=== PATIENT | male | born 1955 | race Caucasian/White ===

== ENCOUNTER 2017-12-08 07:44 | Outpatient (CLI) | payer OTHER ==
--- NOTE | 2017-12-08 13:35 | PET ---
PET CT: HISTORY: A 61-year-old male with squamous cell carcinoma of the left neck, of unknown primary. Exam requested for initial staging. COMPARISON/CORRELATION: There are no previous exams for comparison or correlation. TECHNIQUE: PET scan with CT attenuation correction was performed from the vertex through the proximal thighs, fo llowing the intravenous administration of 11 millicuries of F18 fluorodeoxyglucose in the right hand. Imaging was performed after an uptake interval of 62 minutes. FINDINGS: There is a hypermetabolic mass in the region of the left submandibular gland, with an SUV of 21. No other foci of abnormal FDG localization are seen in the neck. There is a hypermetabolic nodule in the right breast (medial aspect of the right retroareolar breast) with an SUV of 5.3. No hilario hypermetabolism is seen in the mediastinum, hilar regions, axillae, abdomen, pelvis, or ingu inal regions. No hypermetabolic pulmonary nodules or liver, adrenal, or skeletal lesions are seen. There is physiologic activity in the GI and tracts and in the brain. CT scan used for attenuation correction demonstrates no evidence of pleural effusion or ascites. The re are changes of cholecystectomy, fatty liver, nonobstructing left renal calculus, and prostatic enl argement. IMPRESSION: 1. Malignancy/metastatic disease in the region of the left submandibular gland. 2. Findings suspicious for right breast cancer. Further evaluation with bilateral mammograms and right breast ultrasound (including biopsy) is recomm ended. Discussed over the telephone with Dr. Laz Loo at 1:13 p.m. CODE CR POS: [facility]
== END 2017-12-08 07:45 | disposition home or self-care (01) ==
LOC: PET 07:44
PROVIDERS: ATTEND Radiology Radiation Oncology
DX: C80.1 Malignant (primary) neoplasm, unspecified (principal); C77.0 Secondary and unspecified malignant neoplasm of lymph nodes of head, face and neck
CPT/HCPCS: 78815; A9552

== ENCOUNTER 2017-12-22 08:14 | Day surgery (SDC) | payer SELFPAY ==
[2017-12-22] MEDS ORDERED: Dexamethasone 10 MG in Sodium Chloride 0.9% 50 ML IVPB SCH (09:15)
[2017-12-22] MEDS ORDERED: Sodium Chloride 0.9% 500 ML IVPB SCH (09:15)
[2017-12-22] MEDS ORDERED: SODIUM CHLORIDE 0.9% IV SCH (09:15)
[2017-12-22] MEDS ORDERED: CISPLATIN IV SCH (09:15)
[2017-12-22] MEDS ORDERED: Palonosetron HCl 0.25 MG in Sodium Chloride 0.9% 50 ML IVPB SCH (09:15)
[2017-12-22] MEDS ORDERED: MANNITOL IV SCH (09:15)
[2017-12-22 09:35] VITALS: BP 121/77; TEMP 98
[2017-12-22] MEDS ORDERED: Sodium Chloride 0.9% 20 ML ONE (12:49)
== END 2017-12-22 19:25 | disposition home or self-care (01) ==
LOC: ONC/OP 08:14
PROVIDERS: ATTEND Internal Medicine Hematology & Oncology
DX: Z51.11 Encounter for antineoplastic chemotherapy (principal); C14.8 Malignant neoplasm of overlapping sites of lip, oral cavity and pharynx; E11.9 Type 2 diabetes mellitus without complications; Z87.891 Personal history of nicotine dependence; Z79.84 Long term (current) use of oral hypoglycemic drugs
CPT/HCPCS: 96361; 96366; 96375; 96413; J1100; J2150; J2469; J3480; J7050; J9060

== ENCOUNTER 2017-12-30 08:32 | Day surgery (SDC) | payer OTHER, SELFPAY ==
[2017-12-30] MEDS ORDERED: Potassium Chloride 10 MEQ, Admixture Fee 1 EACH in Sodium Chloride 0.9% 500 ML IV SCH (08:45)
[2017-12-30] MEDS ORDERED: PALONOSETRON HCL 0.05 MG/ML 5 ML VIAL IVP SCH (08:45)
[2017-12-30] MEDS ORDERED: Sodium Chloride 0.9% 20 ML ONE (08:45)
[2017-12-30] MEDS ORDERED: Dexamethasone 10 MG/ML VIAL SLOW IVP SCH (08:45)
[2017-12-30 08:51] VITALS: BP 126/73; TEMP 97.8
[2017-12-30] MEDS ORDERED: CISPLATIN IV SCH (09:00)
[2017-12-30] MEDS ORDERED: MANNITOL IV SCH (09:00)
[2017-12-30] MEDS ORDERED: SODIUM CHLORIDE 0.9% IV SCH (09:00)
== END 2017-12-30 16:41 | disposition home or self-care (01) ==
LOC: ONC/OP 08:32
PROVIDERS: ATTEND Internal Medicine Hematology & Oncology
DX: Z51.11 Encounter for antineoplastic chemotherapy (principal); C14.8 Malignant neoplasm of overlapping sites of lip, oral cavity and pharynx
CPT/HCPCS: 96361; 96366; 96375; 96413; J1100; J2150; J2469; J3480; J7050; J9060

== ENCOUNTER 2018-01-06 08:28 | Day surgery (SDC) | payer OTHER ==
[2018-01-06] MEDS ORDERED: Palonosetron HCl 0.25 MG, Admixture Fee 1 EACH in Sodium Chloride 0.9% 50 ML IVPB SCH (08:45)
[2018-01-06] MEDS ORDERED: Potassium Chloride 10 MEQ, Admixture Fee 1 EACH in Sodium Chloride 0.9% 500 ML IV SCH (08:45)
[2018-01-06] MEDS ORDERED: Dexamethasone 10 MG in Sodium Chloride 0.9% 50 ML IVPB SCH (08:45)
[2018-01-06] MEDS ORDERED: SODIUM CHLORIDE 0.9% IV SCH (09:00)
[2018-01-06] MEDS ORDERED: CISPLATIN IV SCH (09:00)
[2018-01-06] MEDS ORDERED: MANNITOL IV SCH (09:00)
[2018-01-06] MEDS ORDERED: Sodium Chloride 0.9% 20 ML ONE (09:08)
[2018-01-06 09:59] VITALS: BP 120/57; TEMP 98.5
== END 2018-01-06 14:50 | disposition home or self-care (01) ==
LOC: ONC/OP 08:28
PROVIDERS: ATTEND Internal Medicine Hematology & Oncology
DX: Z51.11 Encounter for antineoplastic chemotherapy (principal); C14.8 Malignant neoplasm of overlapping sites of lip, oral cavity and pharynx
CPT/HCPCS: 96361; 96366; 96376; 96413; J1100; J2150; J2469; J3480; J7050; J9060

== ENCOUNTER 2018-01-13 08:31 | Day surgery (SDC) | payer OTHER ==
[2018-01-13] MEDS ORDERED: Sodium Chloride 0.9% 20 ML ONE (08:42)
[2018-01-13] MEDS ORDERED: CISPLATIN IV SCH (08:45)
[2018-01-13] MEDS ORDERED: SODIUM CHLORIDE 0.9% IV SCH (08:45)
[2018-01-13] MEDS ORDERED: MANNITOL IV SCH (08:45)
[2018-01-13] MEDS ORDERED: Sodium Chloride 0.9% 500 ML IVPB SCH (09:00)
[2018-01-13] MEDS ORDERED: Dexamethasone 10 MG in Sodium Chloride 0.9% 50 ML IVPB SCH (09:00)
[2018-01-13] MEDS ORDERED: Palonosetron HCl 0.25 MG in Sodium Chloride 0.9% 50 ML IVPB SCH (09:00)
[2018-01-13 11:48] VITALS: BP 112/69; TEMP 98.5
== END 2018-01-13 13:04 | disposition home or self-care (01) ==
LOC: ONC/OP 08:31
PROVIDERS: ATTEND Internal Medicine Hematology & Oncology
DX: Z51.11 Encounter for antineoplastic chemotherapy (principal); C14.8 Malignant neoplasm of overlapping sites of lip, oral cavity and pharynx
CPT/HCPCS: 96361; 96366; 96375; 96413; J1100; J2150; J2469; J3480; J7050; J9060

== ENCOUNTER 2018-01-20 08:23 | Day surgery (SDC) | payer OTHER ==
[2018-01-20] MEDS ORDERED: Sodium Chloride 0.9% 20 ML ONE (08:36)
[2018-01-20 09:13] VITALS: BP 129/69; TEMP 98.3
[2018-01-20] MEDS ORDERED: Sodium Chloride 0.9% 500 ML IVPB SCH (09:15)
[2018-01-20] MEDS ORDERED: Palonosetron HCl 0.25 MG in Sodium Chloride 0.9% 50 ML IVPB SCH (09:15)
[2018-01-20] MEDS ORDERED: Dexamethasone 10 MG in Sodium Chloride 0.9% 50 ML IVPB SCH (09:15)
[2018-01-20] MEDS ORDERED: SODIUM CHLORIDE 0.9% IV SCH (09:45)
[2018-01-20] MEDS ORDERED: MANNITOL IV SCH (09:45)
[2018-01-20] MEDS ORDERED: CISPLATIN IV SCH (09:45)
== END 2018-01-20 16:50 | disposition home or self-care (01) ==
LOC: ONC/OP 08:23
PROVIDERS: ATTEND Internal Medicine Hematology & Oncology
DX: Z51.11 Encounter for antineoplastic chemotherapy (principal); C14.8 Malignant neoplasm of overlapping sites of lip, oral cavity and pharynx
CPT/HCPCS: 96361; 96366; 96375; 96413; J1100; J2150; J2469; J3480; J7050; J9060

== ENCOUNTER 2018-01-30 11:22 | Observation (INO) | payer OTHER ==
[2018-01-27 12:30] VITALS: BMI 25.2
[2018-01-30] MEDS ORDERED: CEFAZOLIN 2 GM/50 ML BAG ONE (11:55)
--- NOTE | 2018-01-30 13:44 | OP ---
DATE OF SERVICE: 01/30/2018 SURGEON: Issac Guevara M.D. PROCEDURE: EGD with PEG tube placement. PREPROCEDURE DIAGNOSES: Previous diagnosis of throat cancer and radiation therapy, unable to talk or swallow for 5 days. POSTOPERATIVE DIAGNOSES: 1. Edema in the pharynx. 2. Normal esophagogastroduodenoscopy otherwise. 3. PEG tube placed by Ponsky pull technique. Second look confirmed good placement. ANESTHESIA: TIVA. Ancef 2 grams IV given prophylactically. PROCEDURE IN DETAIL: After the patient was informed of the risks and benefits and possible complicat ions of endoscopy including perforation, aspiration, informed consent was obtained. The patient was brought to the endoscopy suite where he was sedated in gradual fashion. Once he was comfortable, a b ite block was placed in the incisural orifice, the endoscope was advanced through the esophagus, stom ach, second and third portion of duodenum and slowly. The oropharynx was notable for a little bit of edema in the arytenoid area. No masses were seen. No overt strictures were seen. The esophagus, s tomach, and duodenum were found to be normal. An adequate place for PEG tube was identified by trans illumination and finger indentation and after that it was prepped and draped in sterile fashion. A P EG tube was placed by Ponsky pull technique. Second look confirmed good placement. The scope was re moved. The patient tolerated the procedure well with no complications.
[2018-01-30] MEDS ORDERED: Lidocaine 1% PF 5 ML VIAL ONE (14:54)
[2018-01-30] MEDS ORDERED: PROPOFOL 200 MG/20 ML VIAL ONE (14:54)
[2018-01-30] MEDS ORDERED: Acetaminophen 650 MG/20.3 ML UDCUP PER TUBE PRN (16:53)
[2018-01-30] MEDS: metFORMIN 500 MG TAB PO SCH (17:04)
[2018-01-30] MEDS: Alogliptin 6.25 MG TAB PO SCH (17:04)
[2018-01-30] MEDS: Dextrose 5 % And 0.9 % NaCl 1,000 ML IV SCH (17:12)
[2018-01-30] MEDS: Morphine 2 MG/ML SYRINGE SLOW IVP PRN ×2 (17:14→20:23)
[2018-01-30] MEDS ORDERED: Latanoprost 0.005% Ophth Soln 2.5 ml Bottle EA EYE SCH (21:00)
[2018-01-30] MEDS: Timolol 0.5% Ophth Soln 5 ml Bottle EA EYE SCH (21:17)
[2018-01-30] MEDS: glyBURIDE 5 MG TAB PO SCH (21:18)
[2018-01-31] MEDS: Dextrose 5 % And 0.9 % NaCl 1,000 ML IV SCH (03:33)
[2018-01-31] MEDS ORDERED: Gemfibrozil 600 MG TAB PO SCH (07:30)
[2018-01-31 08:34] VITALS: BP 127/81; TEMP 98.4
[2018-01-31] MEDS: Timolol 0.5% Ophth Soln 5 ml Bottle EA EYE SCH (09:19)
[2018-01-31] MEDS: glyBURIDE 5 MG TAB PO SCH (11:13)
[2018-01-31] MEDS: Alogliptin 6.25 MG TAB PO SCH (11:13)
[2018-01-31] MEDS: metFORMIN 500 MG TAB PO SCH (11:13)
--- NOTE | 2018-02-01 08:40 | DIS ---
ADMITTING DIAGNOSES: 1. A 23-hour observation after PEG tube placement. 2. Oropharyngeal cancer. 3. Odynophagia, dysphagia and aphagia secondary to malignancy. DISCHARGE DIAGNOSIS: Status post percutaneous endoscopic gastrostomy tube placement with no complica tions. PROCEDURE PERFORMED: PEG tube placement. DISCHARGE INSTRUCTIONS: 1. Disposition: The patient will go home and is going to follow up with oncology dietitian for tube feeding instructions. He has been instructed on how to use the feeding tube here as his and ho w to clean it by the nursing staff. 2. Resume home medications. 3. Follow up in my office as needed. Otherwise, when his oncologist and radiation therapist indicat e that he is ready to have his PEG tube removed, we can do that in the office. HOSPITAL COURSE: The patient was admitted for 23-hour day stay after PEG tube placement yesterday. He has done well with no fever, chills, or pain. The PEG tube site looks clean and dry, bumper was l oosened. He has been given education materials and educated him and his on how to use the PEG. He is going to go home today and go by Oncology to have his radiation therapy and visit with a dieti roly there before going home.
== END 2018-01-31 11:16 | disposition home or self-care (01) ==
LOC: SDC 11:22 → SURG A 13:25
PROVIDERS: ADMIT Internal Medicine Gastroenterology; ATTEND Internal Medicine Gastroenterology
PROC: 0DH63UZ Insertion of Feeding Device into Stomach, Percutaneous Approach (ICD-10-PCS; principal; 2018-01-31)
DX: C10.9 Malignant neoplasm of oropharynx, unspecified (principal); R13.10 Dysphagia, unspecified; Z79.84 Long term (current) use of oral hypoglycemic drugs; Z79.899 Other long term (current) drug therapy
CPT/HCPCS: 36416; 96361; 96374; 96376; G0378; J2001; J2270; J2704

== ENCOUNTER 2018-02-24 10:20 | Outpatient (CLI) | payer BC, OTHER | END 2018-02-24 10:21 | disposition home or self-care (01) | LOC: BICMAMMO 10:20 | PROVIDERS: ATTEND Specialist | DX: N63.10 Unspecified lump in the right breast, unspecified quadrant (principal) | CPT/HCPCS: G0279 ==

== ENCOUNTER 2018-03-24 09:43 | Outpatient (CLI) | payer BC ==
--- NOTE | 2018-03-27 13:42 | PET ---
PET WITH CT SKULL TO MID THIGH: CLINICAL HISTORY: Malignant neoplasm upper outer quadrant, male breast. History of squamous cell carcinoma of left nec k. COMPARISON: Reference is made to 12/08/[address] RADIOPHARMACEUTICAL: 10.9 mCi fluorine 18 FDG IV, intermixed with 10 cc 0.9% sodium chloride. There is appropriate biodistribution of radiotracer activity. FINDINGS: There has been interval improvement of hypermetabolic activity at the left neck. There is persistent mass-like soft tissue density of the left oropharynx/submandibular region, with surrounding fat stra nding, some of which may be post treatment in etiology. Residual hypermetabolic activity, although l ess from prior exam, does remain, with SUV measuring up to 2.7. Prior hypermetabolic activity with regard to a right breast mass has resolved, without evidence of hy permetabolic activity remaining within the right breast soft tissue density which remains. Punctate radiopaque density is present within the retroareolar density. There is prominent activity throughout the course of the colon which may be physiologic. No scintigraphic evidence of interval metastatic disease is identified. IMPRESSION: 1. Interval improvement with regard to hypermetabolic activity of left submandibular region mass. T here is CT evidence to indicate interval treatment, with residual hypermetabolic activity remaining. This could relate to post treatment activity and/or a component of underlying residual/recurrent dis ease. 2. Interval resolution of hypermetabolic activity with regard to patient's previously diagnosed righ t breast hypermetabolic mass. Currently, no hypermetabolic activity of the postoperative right breas t tissue is present. 3. No interval development of metastatic disease is demonstrated. POS: [facility]
== END 2018-03-24 09:44 | disposition home or self-care (01) ==
LOC: PET 09:43
PROVIDERS: ATTEND Internal Medicine Hematology & Oncology
DX: C50 Malignant neoplasm of breast (principal); C76.0 Malignant neoplasm of head, face and neck
CPT/HCPCS: 78815; A9552

== ENCOUNTER 2018-03-31 06:13 | Outpatient (CLI) | payer BC, OTHER ==
[2018-03-31 14:47] LABS: Anion Gap 16 mmol/L (10-20); BUN (Urea Nitrogen) 13 mg/dL (8.4-25.7); Calc. Creatinine Clearance 0 mL/min (70-130); Calcium 9.5 mg/dL (7.8-10.44); Carbon Dioxide 25 mmol/L (23-31); Chloride 107 mmol/L (98-107); Estimated GFR-MDRD 77; Glucose 82 mg/dL (80-115); Potassium 4.5 mmol/L (3.5-5.1); Sodium 143 mmol/L (136-145)
[2018-03-31 14:58] LABS: Band 4 % (5-11); Hemoglobin 11.5 g/dL (14.0-18.0); Lymphocytes 12 % (21-51); MDiff Complete? YES; Mean Corpuscular HGB CONC 32.7 g/dL (32.0-36.0); Mean Corpuscular Hemoglobin 31.7 pg (27.0-31.0); Mean Platelet Volume 7.3 fL (7.4-10.4); Monocytes 7 % (0-10); Neutrophil 77 % (42-75); Platelet Count 211 thou/uL (130-400); Platelet Morphology Comment Appears Adequate; RBC Distribution Width 13.1 % (11.5-14.5); Red Blood Cell (RBC) Count 3.63 mill/uL (4.70-6.10); White Blood Cell (WBC) Count 5.1 thou/uL (4.8-10.8)
== END 2018-03-31 06:14 | disposition home or self-care (01) ==
LOC: LABBT 06:13
PROVIDERS: ATTEND Specialist
DX: Z01.818 Encounter for other preprocedural examination (principal); C50.121 Malignant neoplasm of central portion of right male breast; Z17.0 Estrogen receptor positive status [ER+]
CPT/HCPCS: 80048; 85025; 93005; 93010

== ENCOUNTER 2018-04-06 06:48 | Observation (INO) | payer BC, OTHER ==
[2018-03-31 13:45] VITALS: BMI 25.7
--- NOTE | 2018-04-06 08:48 | NM ---
RADIONUCLIDE LYMPHOSCINTIGRAPHY RIGHT BREAST: Date: 04/06/18 HISTORY: Right breast cancer. FINDINGS: After explaining the procedure and answering all questions, the skin around the areola of the right b reast was cleansed. Sterile technique was then used to inject a total volume of 1 mL in 4 equal aliqu ots, 438 microcuries technetium-99m filtered sulfur colloid into the skin at the 12, 3, 6, and 9 o'cl ock periareolar positions of right breast. Injection sites were massaged by the patient and imaging p erformed. Immediate imaging shows uptake of radiotracer at two foci at the right axilla. The patient tolerated the procedure well and was transferred to surgery in good condition. IMPRESSION: Technically successful lymphoscintigraphy right breast, revealing right axillary lymph nodes. POS: [facility]
[2018-04-06] MEDS ORDERED: Ketorolac Tromethamine 30 MG/ML VIAL ONE (09:26)
[2018-04-06] MEDS ORDERED: CEFAZOLIN 2 GM/50 ML BAG ONE (09:26)
[2018-04-06] MEDS ORDERED: Lidocaine 2% PF 5 ML VIAL ONE (12:03)
[2018-04-06] MEDS ORDERED: Bupivacaine HCl 0.25%/Epi 0.0005/PF 10 ML VIAL FS ONE (12:03)
[2018-04-06] MEDS ORDERED: Isosulfan Blue 50 MG/5 ML VIAL ONE (12:03)
[2018-04-06] MEDS ORDERED: Fentanyl 250 MCG/5 ML VIAL ONE (12:05)
[2018-04-06] MEDS ORDERED: Fentanyl 100 MCG/2 ML VIAL ONE ×2 (15:32→16:32)
[2018-04-06] MEDS ORDERED: PHENYLEPHRINE-NS 100 MCG/ML 10 ML SYRINGE ONE (15:46)
[2018-04-06] MEDS ORDERED: Lidocaine 1% PF 5 ML VIAL ONE (15:46)
[2018-04-06] MEDS ORDERED: Glycopyrrolate 0.2 MG/ML 5 ML SYRINGE ONE ×2 (15:46)
[2018-04-06] MEDS ORDERED: Ondansetron PF 4 MG/2 ML Vial ONE (15:46)
[2018-04-06] MEDS ORDERED: Atropine Sulfate 0.4 mg/1 ml Vial ONE (15:46)
[2018-04-06] MEDS ORDERED: ePHEDrine/0.9% NaCl/PF SYRINGE 50 mg/10 ml ONE (15:46)
[2018-04-06] MEDS ORDERED: Rocuronium Bromide 10 MG/ML (10ML VIAL) ONE (15:46)
[2018-04-06] MEDS ORDERED: PROPOFOL 200 MG/20 ML VIAL ONE (15:46)
[2018-04-06] MEDS ORDERED: Morphine 4 MG/ML VIAL SLOW IVP PRN ×2 (16:48)
[2018-04-06] MEDS ORDERED: hydrALAZINE 20 MG/ML VIAL SLOW IVP PRN (16:48)
[2018-04-06] MEDS ORDERED: Ondansetron PF 4 MG/2 ML Vial IVP PRN (16:48)
[2018-04-06] MEDS ORDERED: Dextrose 50% Abboject 50 ML SYRINGE SLOW IVP PRN (16:48)
[2018-04-06] MEDS ORDERED: Dextrose 5% in Water 1,000 ML IV PRN (16:48)
[2018-04-06] MEDS ORDERED: HYDROcodone/Acetaminophen 7.5/325 mg Tablet PO PRN (16:48)
[2018-04-06] MEDS ORDERED: Promethazine HCl 25 MG/ML VIAL IM PRN (16:48)
[2018-04-06] MEDS ORDERED: Non-Formulary Item 1 EACH (Sitagliptin Phos/Metformin Hcl [Janumet] 1 TABLET) PO SCH (17:00)
[2018-04-06] MEDS: Lactated Ringer's 1,000 ML IV SCH (17:57)
[2018-04-06] MEDS: metFORMIN 500 MG TAB PO SCH (18:20)
[2018-04-06] MEDS: Alogliptin 6.25 MG TAB PO SCH (18:26)
[2018-04-06] MEDS: glyBURIDE 5 MG TAB PO SCH (20:13)
[2018-04-06] MEDS: Timolol 0.5% Ophth Soln 5 ml Bottle EA EYE SCH (20:14)
[2018-04-06] MEDS: Famotidine 20 MG TAB PO SCH (20:14)
[2018-04-06] MEDS ORDERED: Latanoprost 0.005% Ophth Soln 2.5 ml Bottle EA EYE SCH (21:00)
[2018-04-07] MEDS: HYDROcodone/Acetaminophen 7.5/325 mg Tablet PO PRN ×2 (00:46→07:47)
[2018-04-07 06:05] LABS: #Eosinphils 0.1 thou/uL (0.0-0.7); #Lymphocytes 0.4 thou/uL (1.20-3.40); #Monocytes 0.8 thou/uL (0.11-0.59); #Neutrophils 4.7 thou/uL (1.40-6.50); %Basophils 0.1 % (0.0-1.0); %Eosinophils 2.2 % (0.0-10.0); %Lymphocytes 6.8 % (21.0-51.0); %Monocytes 12.7 % (0.0-10.0); %Neutrophils 78.2 % (42.0-75.0); Hemoglobin 10.4 g/dL (14.0-18.0); Mean Corpuscular HGB CONC 34.4 g/dL (32.0-36.0); Mean Corpuscular Hemoglobin 34.4 pg (27.0-31.0); Mean Corpuscular Volume 99.9 fL (78.0-98.0); Mean Platelet Volume 6.9 fL (7.4-10.4); Platelet Count 140 thou/uL (130-400); RBC Distribution Width 12.4 % (11.5-14.5); Red Blood Cell (RBC) Count 3.01 mill/uL (4.70-6.10)
[2018-04-07] MEDS: Timolol 0.5% Ophth Soln 5 ml Bottle EA EYE SCH (07:50)
[2018-04-07] MEDS: metFORMIN 500 MG TAB PO SCH (07:51)
[2018-04-07] MEDS: Lactated Ringer's 1,000 ML IV SCH (07:51)
[2018-04-07] MEDS: Alogliptin 6.25 MG TAB PO SCH (07:51)
[2018-04-07] MEDS: Famotidine 20 MG TAB PO SCH (07:51)
[2018-04-07 07:52] VITALS: BP 98/64
[2018-04-07 08:22] VITALS: TEMP 98.6
[2018-04-07] MEDS: glyBURIDE 5 MG TAB PO SCH (11:19)
--- NOTE | 2018-04-07 15:30 | DIS ---
DATE OF ADMISSION: 04/06/2018 DATE OF DISCHARGE: 04/07/2018 HISTORY: Mr. Ramos is status post right mastectomy with full axillary node dissection yesterday. At that time, I also removed his PEG tube and placed a left-sided MediPort. This morning, he has no complaints. He notes some appropriate soreness, but no severe pain. He has rested well overnight. PHYSICAL EXAMINATION: VITAL SIGNS: On examination, he is afebrile. Vital signs are normal. His drain output is appropriate serosanguinous fluid that is of approximately 80 mL per drain. Dressing is intact over his operative site. CHEST: His lungs are clear to auscultation. The left-sided MediPort incision is nicely healed with no bruising and appropriate minimal tenderness. ABDOMEN: Soft and nontender. The PEG tube site is closing appropriately. LABORATORY DATA: His hemoglobin is stable at 10.4. Glucose level was stable this morning at 63. ASSESSMENT: The patient, who is stable, status post right mastectomy. He was observed overnight for pain control. He is stable for discharge home this morning. He is given a prescription for [place] and given wound care instructions in regard to drain care. He has a followup appointment to see me next week. Hopefully, drain removal will occur at that time. Job ID: [id number]
--- NOTE | 2018-04-08 20:29 | OP ---
DATE OF PROCEDURE: 04/06/2018 PREOPERATIVE DIAGNOSIS: Right breast cancer, recent squamous cell carcinoma of the head and neck for which he underwent chemo radiation, unnecessary feeding tube in the left upper abdomen. POSTOPERATIVE DIAGNOSIS: Right breast cancer, recent squamous cell carcinoma of the head and neck for which he underwent chemo radiation, unnecessary feeding tube in the left upper abdomen. PROCEDURES PERFORMED: 1. Right mastectomy with sentinel lymph node biopsy. 2. Positive sentinel lymph node biopsy requiring conversion to a full right axillary lymph node dissection. 3. Placement of left subclavian standard size power compatible MediPort. 4. Removal of left abdominal gastrostomy tube. ANESTHESIA: General endotracheal. INDICATIONS: The patient is a 62-year-old white male. He had recently completed treatment for squamous cell carcinoma of his head and neck. He was diagnosed recently with right breast cancer. He was taken to the operating room at this time for placement of a left-sided MediPort as chemotherapy will be indicated. Additionally, he will undergo right mastectomy as well as right sentinel lymph node biopsy. He requests removal of his gastrostomy tube as he is no longer using this. Lymphoscintigraphy was performed prior to taking him to the operating room and this revealed identification of a couple of right axillary sentinel lymph nodes. DESCRIPTION OF OPERATION: Informed consent was obtained. The patient was taken to the operating room where general endotracheal anesthesia obtained. The patient in supine position. Lymphoscintigraphy had been performed prior to coming to the operating room. Attention was turned first to his left upper chest. Local anesthetic was infiltrated. A large gauge needle was passed under the left clavicle and subclavian vein. A guidewire was passed through the needle and down the superior vena cava. Additional local anesthetic was infiltrated and a transverse incision was created based on the needle insertion site. A subcutaneous pocket was dissected inferiorly. Introducer dilator was passed over the guidewire using fluoroscopic guidance. The guidewire and dilator were removed. Catheter was passed through the introducer and the tip was positioned at the atrial caval junction and trimmed to appropriate length. The catheter was secured to the locking hub of the MediPort and this was placed in the subcutaneous pocket. It was secured to pectoral fascia with 2 interrupted sutures of 3-0 Prolene. The port aspirated blood freely and was flushed with heparinized saline. The wound was closed in layers with 3-0 and 4-0 Monocryl. Dermabond was placed externally. Attention was turned to his right chest. An elliptical incision was created across his right chest to include the nipple-areolar complex and extended laterally to the inferior aspect of the axilla. All dissection was carried out using the plasma blade. Within the lateral incision, dissection was carried down to the axilla. The Neoprobe was utilized to identify areas of maximum radio intensity. Not mentioned above is that the subdermal periareolar tissue was infiltrated with 2.5 mL of Lymphazurin at the beginning of the case and massaged for 5 minutes. The 2 areas of radio intense tissue that were identified proved to be blue-stained lymph nodes. These were dissected circumferentially and all investing tissue was ligated between clamps and 3-0 silk ties. They were passed off the field and submitted to Pathology. One of these 2 lymph nodes proved to have metastatic cancer. The other one was indefinite based on touch prep. Attention was returned to the mastectomy. The mastectomy was performed in usual fashion by raising flaps superiorly, inferiorly and medially and then sweeping the breast tissue off the chest wall in a medial to lateral fashion. The final diagnosis in regard to the lymph nodes was not returned prior to completing the mastectomy and therefore the specimen was passed off as a single specimen. At this time, the pathologist notified us that the lymph node was positive and I therefore proceeded with a right axillary lymph node dissection. The pectoral muscles were dissected along the lateral aspect up into the axilla. The axillary vein was identified. All tissue inferior to the axillary vein was dissected out of the axilla using a combination of sharp dissection and blunt dissection. Investing vessels or nerves were divided between clips. All blue stained tissue was removed with the specimen as well. The long thoracic and thoracodorsal nerves were identified and spared and all fatty lymphatic tissue was swept inferiorly out of the axilla and submitted as a single specimen. Meticulous hemostasis was obtained using the plasma blade. The wound was irrigated with sterile water and all irrigant was aspirated. Two separate drains were placed exiting the inferior flap. One of the 19-Armenian round fluted drain was placed in the axilla and the other of the same size was placed across the mastectomy. The skin edges were approximated with a running suture of 3-0 Vicryl. Skin khushbu were then used externally. Dressings were placed using Xeroform gauze, followed by gauze fluffs and an Michael wrap. Attention was then turned to the gastrostomy tube. This was removed uneventfully with traction and a dry gauze dress was placed externally. There were no complications. The patient tolerated the procedure well and was taken to recovery room in stable condition. Job ID: [id number]
== END 2018-04-07 11:14 | disposition home or self-care (01) ==
LOC: SDC 06:48 → SURG A 17:13
PROVIDERS: ADMIT Specialist; ATTEND Specialist
PROC: 02HV33Z Insertion of Infusion Device into Superior Vena Cava, Percutaneous Approach (ICD-10-PCS; principal; 2018-04-06)
PROC: 0HTT0ZZ Resection of Right Breast, Open Approach (ICD-10-PCS; 2018-04-06)
PROC: 07B50ZX Excision of Right Axillary Lymphatic, Open Approach, Diagnostic (ICD-10-PCS; 2018-04-06)
DX: C50.221 Malignant neoplasm of upper-inner quadrant of right male breast (principal); Z17.0 Estrogen receptor positive status [ER+]; C77.3 Secondary and unspecified malignant neoplasm of axilla and upper limb lymph nodes; Z85.828 Personal history of other malignant neoplasm of skin; Z92.21 Personal history of antineoplastic chemotherapy; Z92.3 Personal history of irradiation; Z87.891 Personal history of nicotine dependence; Z90.49 Acquired absence of other specified parts of digestive tract; Z79.899 Other long term (current) drug therapy; Z98.890 Other specified postprocedural states
CPT/HCPCS: 36415; 36416; 78195; 85025; 88307; 88333; 88334; 88342; 96361; 96374; A9541; C1788; G0378; J0131; J0461; J1642; J1885; J2001; J2405; J2704; J3010; Q9968

== ENCOUNTER 2018-05-16 16:52 | Inpatient (IN) | payer BC ==
[2018-05-16] MEDS ORDERED: Acetaminophen 325 MG TAB PO PRN (17:09)
[2018-05-16] MEDS ORDERED: Guaifenesin DM 100-10/5 ML UDCUP PO PRN (17:09)
[2018-05-16] MEDS ORDERED: Senokot S 8.6-50 MG TAB PO PRN (17:09)
[2018-05-16] MEDS ORDERED: Acetaminophen 650 MG Suppository PR PRN (17:09)
[2018-05-16] MEDS ORDERED: Ondansetron ODT 4 MG TAB PO PRN (17:09)
[2018-05-16] MEDS: Ondansetron PF 4 MG/2 ML Vial IVP PRN (17:28)
[2018-05-16] MEDS ORDERED: HYDROcodone/Acetaminophen 5/325 mg Tablet PO PRN ×2 (17:29)
[2018-05-16] MEDS ORDERED: Loperamide HCl 2 MG CAP PO PRN (17:32)
[2018-05-16] MEDS ORDERED: Promethazine HCl 25 MG/ML VIAL IM/IV PRN (17:45)
--- NOTE | 2018-05-16 17:51 | RAD ---
CHEST TWO VIEWS: 05/16/18 HISTORY: Sepsis. COMPARISON: None. FINDINGS: Two views chest: Normal cardiac silhouette. Pulmonary vessels and hilum are normal. Costophrenic angles are clear. No masses or consolidation. No pneumothorax or osseous abnormalities. Left sided Mediport catheter is no laura. IMPRESSION: No acute cardiopulmonary process. POS: [facility]
[2018-05-16] MEDS: Sodium Chloride 0.9% 1,000 ML IV SCH (18:05)
[2018-05-16 18:07] LABS: ALT (SGPT) 17 U/L (8-55); AST (SGOT) 10 U/L (5-34); Albumin 3.9 g/dL (3.4-4.8); Alkaline Phosphatase 66 U/L (40-150); Anion Gap 23 mmol/L (10-20); BUN (Urea Nitrogen) 74 mg/dL (8.4-25.7); Bilirubin, Total 0.4 mg/dL (0.2-1.2); Calc. Creatinine Clearance 0 mL/min (70-130); Calcium 8.7 mg/dL (7.8-10.44); Carbon Dioxide 13 mmol/L (23-31); Chloride 105 mmol/L (98-107); Estimated GFR-MDRD 8; Globulin 3.1 g/dL (2.4-3.5); Glucose 190 mg/dL (80-115); Sodium 138 mmol/L (136-145)
[2018-05-16 18:11] LABS: Potassium 2.6 mmol/L (3.5-5.1)
[2018-05-16 18:26] LABS: Band 27 % (5-11); Hemoglobin 12.7 g/dL (14.0-18.0); Lymphocytes 6 % (21-51); MDiff Complete? YES; Mean Corpuscular HGB CONC 35.9 g/dL (32.0-36.0); Mean Corpuscular Hemoglobin 33.1 pg (27.0-31.0); Mean Corpuscular Volume 92.2 fL (78.0-98.0); Mean Platelet Volume 8.4 fL (7.4-10.4); Metamyelocyte 2 % (0-0); Monocytes 6 % (0-10); Myelocyte 1 % (0-0); Neutrophil 57 % (42-75); Platelet Count 235 thou/uL (130-400); Platelet Morphology Comment Appears Adequate; RBC Distribution Width 11.8 % (11.5-14.5); Red Blood Cell (RBC) Count 3.83 mill/uL (4.70-6.10); White Blood Cell (WBC) Count 3.6 thou/uL (4.8-10.8)
[2018-05-16] MEDS: Morphine 4 MG/ML VIAL SLOW IVP PRN ×2 (18:34→21:47)
[2018-05-16] MEDS ORDERED: HumaLOG 300 UNITS/3 ML VIAL SC PRN (18:42)
[2018-05-16] MEDS ORDERED: Dextrose 50% Abboject 50 ML SYRINGE SLOW IVP PRN (18:42)
[2018-05-16] MEDS ORDERED: Dextrose 5% in Water 1,000 ML IV PRN (18:42)
[2018-05-16] MEDS ORDERED: Potassium Chloride 40 MEQ in Sodium Chloride 0.9% 500 ML IVPB SCH (19:00)
--- NOTE | 2018-05-16 19:02 | HP ---
PRIMARY CARE PHYSICIAN: Sourav Tamez in [place]. RADIATION ONCOLOGIST: Dr. Breen. CHIEF COMPLAINT: Weakness, nausea, and vomiting. HISTORY OF PRESENT ILLNESS: This 62-year-old white male with a history of previous squamous cell cancer of the neck, who completed radiation and chemotherapy in remission, was intermediately diagnosed with a right-sided invasive ductal breast cancer, status post mastectomy and axillary lymph node dissection. He is on Taxol, Herceptin, and another chemotherapy agent, and being treated for this. Also has a port in place. The patient reports for the last 2 weeks, he has had worsening weakness, nausea, vomiting, unable to tolerate any solids p.o. He has been drinking fluids; however, every time he drinks fluids he has a large amount of diarrhea. He has been getting more severely weak over the last 3 to 4 days and started to have multiple falls. No significant injuries from this. He has a few bruises. He went to see to the cancer center today, was noted to have a blood pressure in the 80s. There, they gave him some Zofran and IV fluids. Awaiting for room air and having transferred over here. When he arrived here, his blood pressure was better in the 100 systolic and pulse in the 80s, still feeling very nauseated and weak. He has had some generalized abdominal pain. It is in a mild level, but no other focal symptoms of infection. PAST MEDICAL HISTORY: 1. Diabetes mellitus, type 2, on oral hypoglycemics, which he has not taken for a couple weeks. 2. 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 3. Invasive ductal breast cancer of the right breast, status post mastectomy and axillary lymph node dissection and now on chemotherapy. PAST SURGICAL HISTORY: 1. Laparoscopic cholecystectomy. 2. Knee surgery. 3. Kidney stone removal. 4. Right total mastectomy and axillary lymph node dissection. 5. Port placement. 6. Previous PEG tube. SOCIAL HISTORY: The patient is . His is accompanying him in the room. He has 4 children. He is a former smoker, 30- to 66-avkz-ofis history. He has now quit. No alcohol or illicit drugs use. FAMILY HISTORY: No significant family medical history. ALLERGIES: NO KNOWN DRUG ALLERGIES. CURRENT MEDICATIONS: 1. Glyburide 5 mg twice a day. 2. Janumet mg one tablet twice a day. 3. Zofran as needed. 4. Latanoprost ophthalmic one drop in each eye at night. 5. timolol maleate ophthalmic solution one drop in each eye twice a day. REVIEW OF SYSTEMS: CONSTITUTIONAL: No fevers, no chills. Just generalized weakness. EYES: No double vision or blurred vision. ENT: No congestion, drainage, or sore throat. He has had some runny nose and occasionally has some blood in it. CARDIOVASCULAR: No chest pain. No palpitations or racing heart. PULMONARY: Occasional cough, productive of small amount of sputum, which he has not looked at. No wheezing or chest tightness or trouble breathing. GASTROINTESTINAL: He has some generalized abdominal pain, mild to moderate. It is on and off along with nausea and vomiting per the HPI, and the watery diarrhea about 5 to 6 times per day for the last couple weeks. GENITOURINARY: No dysuria or hematuria. Has had a drop-off in his urine output recently. MUSCULOSKELETAL: He has some back pain and chronic back pain. No other muscle aches or joint pain. SKIN: No rashes or lesions noted. NEUROLOGIC: No numbness, tingling, or focal weakness. PHYSICAL EXAMINATION: VITAL SIGNS: Blood pressure 100/60, pulse 80, respirations 20, temperature pending. GENERAL: Well-developed, pale white male, who appears ill, but in no acute distress. HEENT: Pupils are equal, round, and reactive to light. Oropharynx, clear without lesions, erythema, or exudate. NECK: Supple. No lymphadenopathy. HEART: Regular rate and rhythm. No murmurs, rubs, or gallops. LUNGS: Clear to auscultation bilaterally. No wheezes, crackles, or rhonchi. ABDOMEN: Soft, nontender to palpation. Normoactive bowel sounds. No hepatosplenomegaly or other masses. EXTREMITIES: No clubbing, cyanosis, or edema. SKIN: No rashes or lesions noted. NEUROLOGIC: He has intact strength and sensation in all extremities. No facial droop. LABORATORY DATA: No lab available at this time. No imaging. ASSESSMENT: 1. Hypotension, resolved with fluids in the cancer center, likely secondary to dehydration, though septic picture cannot be ruled out at this point. We will get a CBC, CMP, lactic acid, blood cultures, urinalysis, urine culture, also check a chest x-ray. We will do stool studies on his next bowel movement. After stool studies are done, we can give him some loperamide as needed. 2. Volume depletion. We will continue normal saline at 100 mL/h. We will encourage p.o. intake as tolerated. 3. Nausea and vomiting, likely secondary to chemotherapy effect. We will give him Zofran as needed. We will also write for some Phenergan IV if Zofran is ineffective. 4. Diarrhea. We will get stool studies and give loperamide as needed. 5. Gastrointestinal prophylaxis. The patient on Pepcid twice a day. 6. Deep venous thrombosis prophylaxis. We will put patient on Lovenox and sequential compression devices. Assuming that the platelet count come back okay. CODE STATUS: I did discuss the patient he is a full code. Should he be incapacitated, he states that his would be his medical decision maker, her name is Cathy Ramos. Job ID: [id number]
[2018-05-16 20:53] LABS: Anion Gap 23 mmol/L (10-20); BUN (Urea Nitrogen) 78 mg/dL (8.4-25.7); Calc. Creatinine Clearance 12 mL/min (70-130); Calcium 8.6 mg/dL (7.8-10.44); Carbon Dioxide 15 mmol/L (23-31); Chloride 106 mmol/L (98-107); Estimated GFR-MDRD 8; Glucose 164 mg/dL (80-115); Phosphorus 8.9 mg/dL (2.3-4.7); Sodium 141 mmol/L (136-145)
[2018-05-16 20:56] LABS: Potassium 2.8 mmol/L (3.5-5.1)
[2018-05-16] MEDS ORDERED: Famotidine 20 MG TAB PO SCH (21:00)
[2018-05-16] MEDS: Timolol 0.5% Ophth Soln 5 ml Bottle EA EYE SCH (21:42)
[2018-05-16] MEDS ORDERED: Famotidine/PF 20 mg/2ml Vial SLOW IVP SCH (21:45)
[2018-05-16] MEDS: Latanoprost 0.005% Ophth Soln 2.5 ml Bottle EA EYE SCH (22:00)
[2018-05-17] MEDS: Morphine 4 MG/ML VIAL SLOW IVP PRN ×4 (06:09→20:46)
[2018-05-17 06:15] LABS: #Eosinphils 0.1 thou/uL (0.0-0.7); #Lymphocytes 0.7 thou/uL (1.20-3.40); #Monocytes 0.6 thou/uL (0.11-0.59); #Neutrophils 2.7 thou/uL (1.40-6.50); %Basophils 0.4 % (0.0-1.0); %Eosinophils 1.6 % (0.0-10.0); %Lymphocytes 16.7 % (21.0-51.0); %Neutrophils 67.3 % (42.0-75.0); Hemoglobin 11.6 g/dL (14.0-18.0); Mean Corpuscular HGB CONC 35.4 g/dL (32.0-36.0); Mean Corpuscular Hemoglobin 32.6 pg (27.0-31.0); Mean Corpuscular Volume 92.1 fL (78.0-98.0); Mean Platelet Volume 8.1 fL (7.4-10.4); Platelet Count 217 thou/uL (130-400); RBC Distribution Width 11.7 % (11.5-14.5); Red Blood Cell (RBC) Count 3.55 mill/uL (4.70-6.10)
[2018-05-17 06:31] LABS: Phosphorus 7.7 mg/dL (2.3-4.7)
[2018-05-17 06:35] LABS: Anion Gap 21 mmol/L (10-20); BUN (Urea Nitrogen) 91 mg/dL (8.4-25.7); Calc. Creatinine Clearance 11 mL/min (70-130); Calcium 8.4 mg/dL (7.8-10.44); Carbon Dioxide 12 mmol/L (23-31); Chloride 110 mmol/L (98-107); Estimated GFR-MDRD 7; Glucose 155 mg/dL (80-115); Magnesium 1.7 mg/dL (1.6-2.6); Sodium 140 mmol/L (136-145); Uric Acid 13.7 mg/dL (3.5-7.2)
[2018-05-17 06:38] LABS: Potassium 2.7 mmol/L (3.5-5.1)
[2018-05-17] MEDS ORDERED: Potassium Chloride 20 MEQ in Premix Bag 1 BAG IVPB SCH (07:45)
[2018-05-17] MEDS: Timolol 0.5% Ophth Soln 5 ml Bottle EA EYE SCH ×2 (08:14→20:22)
[2018-05-17] MEDS: Enoxaparin Sodium 30 MG/0.3 ML SYRINGE SC SCH (08:15)
[2018-05-17] MEDS: Sodium Chloride 0.9% 1,000 ML IV SCH (08:17)
--- NOTE | 2018-05-17 09:17 | PDOC.PN ---
- Subjective Encounter Start Date: 05/17/18 Encounter Start Time: 10:00 Subjective: Patient unchanged from last night. Has some nausea but no vomiting. -: No pain. Feeling weak all over. - Objective Resuscitation Status - Order Detail: 05/16/18 17:43 Resuscitation Status Routine Resuscitation Status: FULL: Full Resuscitation Discussed with: Patient MAR Reviewed: Yes Vital Signs & Weight: Vital Signs (12 hours) Temp Pulse Resp BP BP Pulse Ox 05/17/18 08:14 66 05/17/18 08:11 97.3 F L 66 18 90/55 L 97 05/17/18 04:26 97.2 F L 70 18 92/59 L 96 05/17/18 00:27 97.6 F 76 18 99/59 L 97 05/16/18 21:42 77 103/65 Weight Weight 165 lb 5 oz I&O: 05/16/18 05/17/18 05/18/18 06:59 06:59 06:59 Intake Total 1266 Balance 1266 Result Diagrams: 05/17/18 06:05 05/17/18 06:05 Additional Labs: Accuchecks 05/17/18 05/16/18 05:25 20:23 POC Glucose 131 H 176 H Radiology Reviewed by me: Yes (mediport in place, no infiltrate) Phys Exam - Physical Examination Constitutional: NAD HEENT: moist MMs Respiratory: no wheezing, no rales, no rhonchi Cardiovascular: RRR, no significant murmur Gastrointestinal: soft, non-tender, positive bowel sounds Neurological: non-focal, moves all 4 limbs Psychiatric: normal affect, A&O x 3 Dx/Plan (1) Acute renal failure (ARF) Status: Acute Comment: likely plugging of kidneys by uric acid, severe creatinine elevation, not improving with fluid administration, Dr. Soto consulted and will try medication to disolved uric acid in the tubules (2) Hypotension Status: Resolved Comment: with fluid administration (3) Nausea and vomiting Code(s): R11.2 - NAUSEA WITH VOMITING, UNSPECIFIED Status: Acute (4) Diarrhea Code(s): R19.7 - DIARRHEA, UNSPECIFIED Status: Acute Comment: likely due to chemo effect, C. diff and infectious panels negative, give loperamide as needed (5) Invasive ductal carcinoma of right male breast Code(s): C50.921 - MALIGNANT NEOPLASM OF UNSPECIFIED SITE OF RIGHT MALE BREAST Status: Chronic Comment: s/p mastectomy and lymph node dissection, on chemotherapy (6) Hypokalemia Code(s): E87.6 - HYPOKALEMIA Status: Acute Comment: repleting - Plan cont current plan of care, DVT proph w/SCDs * . - Discharge Day Encounter end time: 10:10
--- NOTE | 2018-05-17 09:43 | ULT ---
RENAL ULTRASOUND: History: Acute renal failure. Technique: Multiplanar grayscale and color doppler images were obtained in a renal ultrasound. Comparison: PET CT 03-24-18 FINDINGS: In the superior pole of the right kidney, there is a 2.2 cm hypoechoic region appearing to imminate f rom the renal cortex. No obvious cyst is seen on prior PET CT in this location. This could potentiall y represent a renal mass. No hydronephrosis is seen. No shadowing calculi are seen in either kidney. The kidneys measure 10.2 and 10.8 cm in length on the right and left, respectively. Limited visualiza tion of the urinary bladder is unremarkable. IMPRESSION: Possible left renal mass versus cyst. This was not seen on prior PET CT. A CT of the abdomen/pelvis w ith and without contrast per renal mass protocol is recommended for further evaluation. POS: [facility]
[2018-05-17] MEDS: Diphenoxylate HCl/Atropine Tablet PO PRN ×4 (10:56→23:38)
[2018-05-17] MEDS ORDERED: Sodium Bicarbonate 150 MEQ in Dextrose 5% in Water 1,000 ML IV SCH (11:15)
--- NOTE | 2018-05-17 12:06 | CON ---
DATE OF CONSULTATION: 05/17/2018 HISTORY OF PRESENT ILLNESS: Mr. 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 His prior history dates back to 6 months ago when he was diagnosed with head and neck squamous cell carcinoma and received combined-modality treatment with radiation and cisplatin in fall. Upon completing this, he was found to have the breast cancer and had a mastectomy and now is getting adjuvant treatment. For the last 2 weeks, he complains of intense diarrhea. He was in the office 5 days prior to admission with a creatinine of 1.7 and was hydration as well as Taxol and Herceptin. The diarrhea continued through the weekend and he presented to the office with hypotension and diarrhea. His creatinine at that time was over 7. He is admitted for further workup and hydration. He continues to complain of some nausea. He was having nausea and vomiting last weekend, but states that the nausea is now improving upon admission. He denies any abdominal pain or cramping. He does describe the diarrhea as large volume and he was having 5 or 6 stools per day. He denies any chest pain or palpitation. He was not eating or drinking very well at baseline because of treatment for the head and neck cancer last fall. PAST MEDICAL HISTORY: 1. Head and neck squamous cell carcinoma, diagnosed fall status post cisplatin and radiation. 2. Recent diagnosis of stage 2 invasive ductal carcinoma, status post mastectomy, now getting adjuvant treatment. 3. Type 2 diabetes mellitus. 4. Nephrolithiasis. MEDICATIONS: 1. Tylenol 650 mg p.o. q.4 hours p.r.n. 2. Hydrocodone 1 tab p.o. q.4 hours p.r.n. 3. Lovenox 30 mg subcu daily. 4. Pepcid 20 mg IV daily. 5. Glucagon p.r.n. 6. Guaifenesin p.r.n. 7. Insulin sliding scale. 8. Imodium 2 mg p.o. q.2 hours p.r.n. 9. Morphine 4 mg IV q.3 hours p.r.n. 10. Zofran 4 mg p.o. q.6 hours p.r.n. 11. Zofran 4 mg IV q.6 hours p.r.n. 12. Phenergan 25 mg IV q.6 hours p.r.n. 13. Senokot p.r.n. ALLERGIES: NO KNOWN DRUG ALLERGIES. SOCIAL HISTORY: He is and lives with who is quite supportive. He does admit to a distant history of tobacco use, but nothing current. No illicit drug or alcohol use. He has 4 children, who are also somewhat supportive. FAMILY HISTORY: Noncontributory. REVIEW OF SYSTEMS: Otherwise, 10-point review of systems is negative, including no fevers or chills. He is just quite weak. PHYSICAL EXAMINATION: VITAL SIGNS: Temperature 97.6, pulse 76, O2 sat 97% on room air, respirations 18, and blood pressure 99/59. GENERAL: He is pleasant, in no acute distress. Alert, awake, and oriented x3. HEENT: Extraocular muscles are intact. Sclerae are anicteric. NECK: Supple without lymphadenopathy. He does have radiation changes, but no significant scarring. CARDIOVASCULAR: Regular rhythm. No murmur. LUNGS: Clear to auscultation bilaterally. ABDOMEN: Hypoactive bowel sounds. Soft, nontender, nondistended. EXTREMITIES: No edema. No purpura. No clubbing. LABORATORY DATA: Sodium 138; potassium 2.6; chloride 105; CO2 of 13; BUN 74; creatinine 6.7 after hydration in my office, his prior creatinine was over 7; glucose 190; and calcium 8.7. Liver function tests are normal. His creatinine after 24 hours of hydration is back up to 7.6, potassium 2.7. White blood cell count 4.0, hemoglobin 11.6, and platelets 217. ASSESSMENT: Mr. Ramos is a 62-year-old male with, 1. Acute renal failure. 2. Stage 2 HER-2 positive invasive ductal carcinoma, getting adjuvant treatment with Taxol, Herceptin, Perjeta. 3. History of head and neck cancer, status post cisplatin-based chemotherapy with radiation in the last 6 months. 4. Hypokalemia. PLAN: 1. I have consulted Nephrology in order to renal ultrasound. He is not making much urine and a Glover catheter may be necessary, but we will wait for Nephrology to come by this morning. 2. He is getting hydration with potassium. We will let Nephrology change this if necessary. 3. He will not get chemotherapy or treatment this week, he may in fact not get any further treatment. 4. It is possible this is all from dehydration from voluminous diarrhea. My concern may be that he has had prior cisplatin and that he has acute kidney injury from other drugs including possibly Perjeta. I have discussed this with Nephrology and wait on their suggestions. 5. He needs DVT prophylaxis. 6. Stools have been sent for culture to rule out C difficile, but I think this is likely from treatment. Job ID: [id number]
--- NOTE | 2018-05-17 12:27 | CON ---
DATE OF CONSULTATION: 05/17/2018 CONSULTING PHYSICIAN: Dr. Breen. REASON FOR CONSULT: Acute kidney injury. REASON FOR ADMISSION: Weakness, nausea and vomiting. HISTORY OF PRESET ILLNESS: A 62-year-old white male with history of type 2 diabetes, Squamous cell neck cancer and invasive ductal breast cancer, came to the hospital with above complaints. The patient is having 3rd round of chemo. He was having diarrhea, nausea, vomiting. He was not feeling well, taken to the hospital, was found to have elevated creatinine. He had a creatinine of 7.24 on admission and improved to 6.7 with hydration and started worsening to 7.61 this morning and Nephrology was consulted. His baseline creatinine is around 1.1, which was on 04/25/2018. The patient is still having diarrhea, not feeling very well, very weak and tired. He was also found to have elevated uric acid and hyperphosphatemia. PAST MEDICAL HISTORY: 1. Positive for type 2 diabetes. 2. Squamous cell neck cancer. 3. Invasive ductal breast cancer, status post mastectomy and now on chemo. PAST SURGICAL HISTORY: 1. Laparoscopic cholecystectomy. 2. Knee surgery. 3. Kidney stone removal. 4. Right total mastectomy. 5. PEG tube placement. HOME MEDICATIONS: 1. Glyburide. 2. Janumet. 3. Sulfa. 4. Latanoprost. ALLERGIES: NO KNOWN DRUG ALLERGIES. SOCIAL HISTORY: He has 4 kids. He is a former smoker. No alcohol or illicit drug abuse. FAMILY HISTORY: No significant family history of kidney disease. REVIEW OF SYSTEMS CONSTITUTIONAL: Negative for weight loss or gain, ability to conduct usual activities. SKIN: Negative for rash, itching. EYES: Negative for double vision, pain. ENT/MOUTH: Negative for nose bleeding, neck stiffness, pain, tenderness. CARDIOVASCULAR: Negative for palpitations, dyspnea on exertion, orthopnea. RESPIRATORY: Negative for shortness of breath, wheezing, cough, hemoptysis, fever or night sweats. GASTROINTESTINAL: Negative for poor appetite, abdominal pain, heartburn, nausea , vomiting, constipation, or diarrhea. GENITOURINARY: Negative for urgency, frequency, dysuria, nocturia. MUSCULOSKELETAL: Negative for pain, swelling. NEUROLOGIC/PSYCHIATRIC: Negative for anxiety, depression. ALLERGY/IMMUNOLOGIC: Negative for skin rash, bleeding tendency. PHYSICAL EXAMINATION: GENERAL: Reveals a well-built male, in no apparent distress. VITAL SIGNS: Temperature 97.3, pulse 63, respirations 18, blood pressure 90/ 55. HEENT: Atraumatic and normocephalic. Oral mucosa is dry. NECK: Supple. CVS: S1 and S2 heard. Regular rate and rhythm. RESPIRATORY: Clear. GASTROINTESTINAL: Abdomen is soft. MUSCULOSKELETAL: 1+ edema. DERMATOLOGIC: No skin rash. NEUROLOGIC: Alert and awake. PSYCHIATRIC: Mood and affect normal. LABORATORY DATA: Hemoglobin is 11.6, potassium is 2.7, BUN is 91, creatinine is 7.6. He had an ultrasound with no hydronephrosis, possible renal mass versus cyst, which was not evident in his last PET CT. No calculi present. Limited evaluation of urinary bladder. ASSESSMENT AND PLAN: 1. Acute kidney injury with his elevated uric acid to 14.5 to 13.7. Tumor lysis is highly likely. Even though on my discussion with Dr. Breen, there is no tumor burden that we are dealing with from a hematological perspective. I think hyperuricemia is causing intratubular obstruction at this point and we need to reduce the uric acid level. I plan is to start on rasburicase. We will check G6PD level to r/o deficiency, but we do not have time to wait until the results are back. We will monitor his CBC daily to rule out any hemolysis and Dr. Breen will be watching it. 2. Hypokalemia. Replace cautiously given the acute kidney injury. 3. Metabolic acidosis - change IV fluid to bicarb drip. 4. Hyperphosphatemia. 5. Hyperuricemia The patient does not meet the criteria of hyperkalemia or hypocalcemia for tumor lysis, but I think the hyperuricemia is causing intratubular obstruction leading to CHARANJIT and oliguria. PLAN: 1. To continue on IV fluids cautiously and monitor cardiorespiratory status closely. 2. Start rasburicase as soon as we can. Orders placed in the chart and nonformulary form signed. Check CMP and uric acid level daily. 3. We will order G6PD level to r/o deficiency. 4. Monitor for hemolysis. Check CBC daily. 5. Prognosis is guarded. 6. No acute indication for dialysis. 7. We will continue close monitoring. 8. We will change IV fluids to bicarb drip. 9. We will follow. Thank you for the consult. Plan discussed with Dr Breen and Dr Richter Job ID: [id number] [facility]OSPITALSherie
[2018-05-17] MEDS: HumaLOG 300 UNITS/3 ML VIAL SC PRN (17:45)
[2018-05-17] MEDS: Famotidine/PF 20 mg/2ml Vial SLOW IVP SCH (20:23)
[2018-05-17] MEDS: Ondansetron PF 4 MG/2 ML Vial IVP PRN (20:31)
[2018-05-17] MEDS: Latanoprost 0.005% Ophth Soln 2.5 ml Bottle EA EYE SCH (20:35)
[2018-05-17 20:40] LABS: Anion Gap 17 mmol/L (10-20); BUN (Urea Nitrogen) 96 mg/dL (8.4-25.7); Calc. Creatinine Clearance 11 mL/min (70-130); Calcium 8.1 mg/dL (7.8-10.44); Carbon Dioxide 17 mmol/L (23-31); Chloride 106 mmol/L (98-107); Estimated GFR-MDRD 7; Glucose 152 mg/dL (80-115); Sodium 138 mmol/L (136-145)
[2018-05-17 20:45] LABS: Potassium 2.1 mmol/L (3.5-5.1)
[2018-05-17] MEDS ORDERED: Potassium Chloride 40 MEQ in Premix Bag 1 BAG IVPB SCH (21:15)
[2018-05-18] MEDS: Ondansetron PF 4 MG/2 ML Vial IVP PRN ×3 (05:14→17:40)
[2018-05-18 06:07] LABS: ALT (SGPT) 11 U/L (8-55); AST (SGOT) 13 U/L (5-34); Albumin 3.5 g/dL (3.4-4.8); Alkaline Phosphatase 57 U/L (40-150); Anion Gap 19 mmol/L (10-20); BUN (Urea Nitrogen) 96 mg/dL (8.4-25.7); Band 21 % (5-11); Bilirubin, Total 0.4 mg/dL (0.2-1.2); Calc. Creatinine Clearance 12 mL/min (70-130); Calcium 8.7 mg/dL (7.8-10.44); Carbon Dioxide 17 mmol/L (23-31); Chloride 107 mmol/L (98-107); Estimated GFR-MDRD 7; Globulin 2.7 g/dL (2.4-3.5); Glucose 134 mg/dL (80-115); Hemoglobin 10.7 g/dL (14.0-18.0); Lymphocytes 12 % (21-51); MDiff Complete? YES; Mean Corpuscular HGB CONC 35.1 g/dL (32.0-36.0); Mean Corpuscular Hemoglobin 32.2 pg (27.0-31.0); Mean Corpuscular Volume 91.7 fL (78.0-98.0); Mean Platelet Volume 8.7 fL (7.4-10.4); Monocytes 15 % (0-10); Neutrophil 52 % (42-75); Phosphorus 5.5 mg/dL (2.3-4.7); Platelet Count 205 thou/uL (130-400); Potassium 2.5 mmol/L (3.5-5.1); Protein, Total 6.2 g/dL (5.8-8.1); RBC Distribution Width 11.8 % (11.5-14.5); Red Blood Cell (RBC) Count 3.32 mill/uL (4.70-6.10); Sodium 140 mmol/L (136-145); Uric Acid 14.3 mg/dL (3.5-7.2); White Blood Cell (WBC) Count 3.5 thou/uL (4.8-10.8)
[2018-05-18 06:09] LABS: Bilirubin Negative (Negative); Blood, Urine Small (Negative); Clarity TURBID (Clear); Glucose, Urine (Dipstick) Negative (Negative); Leukocyte Small (Negative); Nitrite Negative (Negative); Protein, Urine (Dipstick) Trace mg/dL (Neg-Trace); Specific Gravity, Urine 1.011 (1.002-1.036); Urobilinogen 0.2 mg/dL (0.2-1.0)
[2018-05-18 06:12] LABS: Bacteria/HPF None Seen HPF (None Seen)
[2018-05-18 06:30] LABS: Pathc Cast-AUWi Flag 38.66 (0-2.49); Yeast-AUWi Flag 557.1 (0-25.0)
[2018-05-18 06:31] LABS: Renal Epithelial 0-3 HPF (0-3)
[2018-05-18 06:32] LABS: Other Casts/LPF 0-3 COARSE GRAN LPF (0-3 Hyaline); Yeast-All Forms None Seen HPF (None Seen)
[2018-05-18] MEDS: Enoxaparin Sodium 30 MG/0.3 ML SYRINGE SC SCH (07:58)
[2018-05-18] MEDS: Timolol 0.5% Ophth Soln 5 ml Bottle EA EYE SCH ×2 (08:01→20:52)
--- NOTE | 2018-05-18 08:06 | PDOC.PN ---
- Subjective Encounter Start Date: 05/18/18 Encounter Start Time: 10:50 Subjective: Unchanged. Still with intermittent nausea and vomiting. Did start -: making some urine last night. - Objective Resuscitation Status - Order Detail: 05/16/18 17:43 Resuscitation Status Routine Resuscitation Status: FULL: Full Resuscitation Discussed with: Glo SARAH Reviewed: Yes Vital Signs & Weight: Vital Signs (12 hours) Temp Pulse Resp BP BP Pulse Ox 05/18/18 08:01 72 05/18/18 04:26 97.5 F L 72 16 93/52 L 97 05/18/18 00:31 97.6 F 71 16 87/52 L 96 05/17/18 20:30 100 05/17/18 20:22 69 103/65 Weight Admit Weight 165 lb 5 oz Weight 173 lb 8 oz I&O: 05/17/18 05/18/18 05/19/18 06:59 06:59 06:59 Intake Total 2866 763 Output Total 100 Balance 2766 763 Result Diagrams: 05/18/18 05:38 05/18/18 05:38 Additional Labs: Accuchecks 05/18/18 05/17/18 05/17/18 05:35 20:26 17:23 POC Glucose 139 H 160 H 209 H 05/17/18 11:31 POC Glucose 183 H Phys Exam - Physical Examination Constitutional: NAD HEENT: moist MMs Respiratory: no wheezing, no rales, no rhonchi Cardiovascular: RRR, no significant murmur Gastrointestinal: soft, positive bowel sounds Neurological: non-focal Psychiatric: normal affect, A&O x 3 Dx/Plan (1) Acute renal failure (ARF) Status: Acute Comment: likely plugging of kidneys by uric acid, severe creatinine elevation, not improving with fluid administration, Dr. Soto consulted and will try medication to disolved uric acid in the tubules (2) Hypotension Status: Resolved Comment: with fluid administration (3) Nausea and vomiting Code(s): R11.2 - NAUSEA WITH VOMITING, UNSPECIFIED Status: Acute (4) Diarrhea Code(s): R19.7 - DIARRHEA, UNSPECIFIED Status: Acute Comment: likely due to chemo effect, C. diff and infectious panels negative, give loperamide as needed (5) Invasive ductal carcinoma of right male breast Code(s): C50.921 - MALIGNANT NEOPLASM OF UNSPECIFIED SITE OF RIGHT MALE BREAST Status: Chronic Comment: s/p mastectomy and lymph node dissection, on chemotherapy (6) Hypokalemia Code(s): E87.6 - HYPOKALEMIA Status: Acute Comment: repleting - Plan cont current plan of care * . - Discharge Day Encounter end time: 11:00
[2018-05-18] MEDS ORDERED: Potassium Chloride 40 MEQ in Sodium Chloride 0.9% 250 ML 250 ML IVPB SCH (08:45)
[2018-05-18] MEDS: Rasburicase 3 MG in Sodium Chloride 0.9% 50 ML IVPB SCH ×2 (08:54→17:32)
--- NOTE | 2018-05-18 11:10 | PRG ---
DATE OF SERVICE: 05/18/2018 SUBJECTIVE: The patient was seen and examined at bedside and overnight events noted. Patient denies any shortness of breath or chest pain or palpitation. No history of nausea or vomiting or diarrhea or fever or chills or cramps. OBJECTIVE: GENERAL: This is a well-built male, in no acute distress. VITAL SIGNS: Temperature 97.3, pulse 65, respiratory rate 16, blood pressure 96/63. HEENT: Atraumatic, normocephalic. Oral mucosa is moist NECK: Supple. CARDIOVASCULAR: S1, S2 heard. Rate and rhythm regular. RESPIRATORY: Clear to auscultation. GASTROINTESTINAL: Abdomen is soft. MUSCULOSKELETAL: No tenderness. No edema. DERMATOLOGIC: No skin rash. NEUROLOGIC: Alert and awake and oriented X3. No focal neurologic deficits. Moving all the extremities. PSYCHIATRIC: Mood and affect normal. LABORATORY DATA: Potassium is 2.5, BUN is 96, creatinine is 7.5. ASSESSMENT AND PLAN: 1. Acute kidney injury, most likely secondary to hyperuricemia and intratubular obstruction. The patient got a dose of rasburicase. Plan is to recheck uric acid and BMP later in the evening around 4 p.m. today. Orders placed. 2. Hypokalemia. We will recommend high caution with replacement. Currently, the patient is asymptomatic. No cramps, no respiratory problems or cardiac arrhythmias. Monitor closely with cautious replacement given the acute kidney injury and oliguria. 3. Oliguric kidney injury. 4. Metabolic acidosis, stable. I have given him a dose of bicarb drip yesterday. 5. Hypophosphatemia. Limit phosphorus intake. 6. Hyperuricemia. We will continue rasburicase, not able to use allopurinol unless uric acid level less than 8. 7. Watch for hemolysis. G6PD level ordered. 8. Edema, controlled. 9. Hypotension, stable. 10. We will monitor labs closely. The patient remains high risk for complications, we will follow. Phosphorus level is better. Creatinine level seems to be stable. 11. Continue hydration as tolerated and rasburicase as needed. Thank you for the consult. We will follow. Job ID: [id number]
[2018-05-18] MEDS: HumaLOG 300 UNITS/3 ML VIAL SC PRN (11:47)
[2018-05-18] MEDS: Morphine 4 MG/ML VIAL SLOW IVP PRN ×2 (11:50→19:42)
[2018-05-18] MEDS ORDERED: Sodium Chloride 0.9% 1,000 ML IV SCH (14:30)
[2018-05-18 17:07] LABS: Anion Gap 15 mmol/L (10-20); BUN (Urea Nitrogen) 92 mg/dL (8.4-25.7); Calc. Creatinine Clearance 12 mL/min (70-130); Calcium 8.5 mg/dL (7.8-10.44); Carbon Dioxide 18 mmol/L (23-31); Chloride 107 mmol/L (98-107); Estimated GFR-MDRD 8; Glucose 111 mg/dL (80-115); Sodium 138 mmol/L (136-145); Uric Acid 7.9 mg/dL (3.5-7.2)
[2018-05-18 17:15] LABS: Potassium 2.4 mmol/L (3.5-5.1)
[2018-05-18] MEDS: Famotidine/PF 20 mg/2ml Vial SLOW IVP SCH (20:52)
[2018-05-18] MEDS: Latanoprost 0.005% Ophth Soln 2.5 ml Bottle EA EYE SCH (20:52)
[2018-05-19] MEDS: Morphine 4 MG/ML VIAL SLOW IVP PRN ×4 (04:21→19:17)
[2018-05-19 04:28] LABS: #Eosinphils 0.1 thou/uL (0.0-0.7); #Lymphocytes 0.5 thou/uL (1.20-3.40); #Monocytes 0.6 thou/uL (0.11-0.59); #Neutrophils 3.1 thou/uL (1.40-6.50); %Basophils 0.4 % (0.0-1.0); %Eosinophils 1.8 % (0.0-10.0); %Lymphocytes 11.5 % (21.0-51.0); %Monocytes 14.2 % (0.0-10.0); %Neutrophils 72.1 % (42.0-75.0); Hemoglobin 9.7 g/dL (14.0-18.0); Mean Corpuscular HGB CONC 36.7 g/dL (32.0-36.0); Mean Corpuscular Hemoglobin 33.8 pg (27.0-31.0); Mean Corpuscular Volume 92.1 fL (78.0-98.0); Mean Platelet Volume 8.5 fL (7.4-10.4); Platelet Count 192 thou/uL (130-400); RBC Distribution Width 11.8 % (11.5-14.5); Red Blood Cell (RBC) Count 2.87 mill/uL (4.70-6.10); White Blood Cell (WBC) Count 4.2 thou/uL (4.8-10.8)
[2018-05-19 04:47] LABS: ALT (SGPT) 9 U/L (8-55); AST (SGOT) 9 U/L (5-34); Albumin 3.2 g/dL (3.4-4.8); Alkaline Phosphatase 55 U/L (40-150); Anion Gap 17 mmol/L (10-20); BUN (Urea Nitrogen) 88 mg/dL (8.4-25.7); Bilirubin, Total 0.3 mg/dL (0.2-1.2); Calc. Creatinine Clearance 13 mL/min (70-130); Calcium 8.4 mg/dL (7.8-10.44); Carbon Dioxide 16 mmol/L (23-31); Chloride 110 mmol/L (98-107); Estimated GFR-MDRD 9; Globulin 2.5 g/dL (2.4-3.5); Glucose 111 mg/dL (80-115); Phosphorus 4.5 mg/dL (2.3-4.7); Potassium 3.1 mmol/L (3.5-5.1); Protein, Total 5.7 g/dL (5.8-8.1); Sodium 140 mmol/L (136-145); Uric Acid 3.2 mg/dL (3.5-7.2)
[2018-05-19] MEDS: Ondansetron PF 4 MG/2 ML Vial IVP PRN ×2 (07:29→13:51)
[2018-05-19] MEDS: Timolol 0.5% Ophth Soln 5 ml Bottle EA EYE SCH (08:26)
[2018-05-19] MEDS: Enoxaparin Sodium 30 MG/0.3 ML SYRINGE SC SCH (08:27)
[2018-05-19] MEDS ORDERED: Sodium Bicarbonate 150 MEQ in Dextrose 5% in Water 1,000 ML IV SCH (10:15)
[2018-05-19] MEDS ORDERED: POTASSIUM CHLORIDE IV SCH (10:15)
[2018-05-19] MEDS ORDERED: ADMIXTURE FEE IV SCH (10:15)
[2018-05-19] MEDS ORDERED: SODIUM CHLORIDE IV SCH (10:15)
--- NOTE | 2018-05-19 12:23 | PDOC.PN ---
- Subjective Encounter Start Date: 05/19/18 Encounter Start Time: 09:15 -: old records requested/rev Patient seen and examined. No new complaints. No overnight events - Objective Resuscitation Status - Order Detail: 05/16/18 17:43 Resuscitation Status Routine Resuscitation Status: FULL: Full Resuscitation Discussed with: Patient KEARA Reviewed: Yes Vital Signs & Weight: Vital Signs (12 hours) Temp Pulse Resp BP Pulse Ox 05/19/18 08:26 65 05/19/18 08:00 97.4 F L 69 16 84/52 L 97 05/19/18 04:00 98.0 F 65 16 93/54 L 96 Weight Admit Weight 165 lb 5 oz Weight 173 lb 8 oz I&O: 05/18/18 05/19/18 05/20/18 06:59 06:59 06:59 Intake Total 2866 1553 Output Total 100 Balance 2766 1553 Result Diagrams: 05/19/18 04:15 05/19/18 04:15 Additional Labs: Accuchecks 05/18/18 05/18/18 05/18/18 19:37 17:41 11:24 POC Glucose 150 H 120 H 177 H Phys Exam - Physical Examination Constitutional: NAD HEENT: PERRLA, moist MMs, sclera anicteric Neck: no JVD, supple Respiratory: no wheezing, no rales, no rhonchi Cardiovascular: RRR, no significant murmur, no rub Gastrointestinal: soft, non-tender, no distention Musculoskeletal: no edema, pulses present Neurological: non-focal, normal sensation Lymphatic: no nodes Psychiatric: normal affect Skin: no rash, normal turgor Dx/Plan (1) Acute renal failure (ARF) Status: Acute Comment: likely plugging of kidneys by uric acid, severe creatinine elevation (2) Diarrhea Code(s): R19.7 - DIARRHEA, UNSPECIFIED Status: Acute Comment: likely due to chemo effect, C. 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 Code(s): C50.921 - MALIGNANT NEOPLASM OF UNSPECIFIED SITE OF RIGHT MALE BREAST Status: Chronic Comment: s/p mastectomy and lymph node dissection, on chemotherapy (7) Hypotension Status: Resolved Comment: with fluid administration - Plan cont current plan of care, plan discussed w/ family * monitor renal function * continue IVF * medication reviewed as below * symptomatic treatment * discussed with family. Review of Systems - Review of Systems ENT: negative: Ear Pain, Ear Discharge, Nose Pain, Nose Discharge, Nose Congestion, Mouth Pain, Mouth Swelling, Throat Pain, Throat Swelling, Other Respiratory: negative: Cough, Dry, Shortness of Breath, Hemoptysis, SOB with Excertion, Pleuritic Pain, Sputum, Wheezing Cardiovascular: negative: chest pain, palpitations, orthopnea, paroxysmal nocturnal dyspnea, edema, light headedness, other Gastrointestinal: negative: Nausea, Vomiting, Abdominal Pain, Diarrhea, Constipation, Melena, Hematochezia, Other Genitourinary: negative: Dysuria, Frequency, Incontinence, Hematuria, Retention , Other Musculoskeletal: negative: Neck Pain, Shoulder Pain, Arm Pain, Back Pain, Hand Pain, Leg Pain, Foot Pain, Other - Medications/Allergies Allergies/Adverse Reactions: Allergies Allergy/AdvReac Type Severity Reaction Status Date / Time No Known Allergies Allergy Verified 03/31/18 13:45 Medications: Current Medications Acetaminophen (Tylenol) 650 mg PO Q4H PRN PRN Reason: Headache/Fever/Mild Pain (1-3) Acetaminophen (Tylenol) 650 mg NC Q4H PRN PRN Reason: Headache/Fever/Mild Pain (1-3) Hydrocodone Bitart/Acetaminophen ([place] 5/325) 1 tab PO Q4H PRN PRN Reason: Mild-Moderate Pain (1-5) Hydrocodone Bitart/Acetaminophen ([place] 5/325) 2 tab PO Q4H PRN PRN Reason: Severe Pain (7-10) Dextrose/Water (Dextrose 50%) 25 gm SLOW IVP PRN PRN PRN Reason: Hypoglycemia Diphenoxylate HCl/Atropine (Lomotil) 1 tab PO QIDPRN PRN PRN Reason: Diarrhea/Loose Stools Last Admin: 05/17/18 17:06 Dose: 1 tab Diphenoxylate HCl/Atropine (Lomotil) 2 tab PO QIDPRN PRN PRN Reason: Diarrhea/Loose Stools Last Admin: 05/17/18 23:38 Dose: 2 tab Enoxaparin Sodium (Lovenox) 30 mg SC 0900 [facility] Last Admin: 05/19/18 08:27 Dose: 30 mg Famotidine (Pepcid) 20 mg SLOW IVP QPM [facility] Last Admin: 05/18/18 20:52 Dose: 20 mg Glucagon (Glucagon) 1 mg IM PRN PRN PRN Reason: Hypoglycemia Guaifenesin/Dextromethorphan (Robitussin Dm) 15 ml PO Q4H PRN PRN Reason: Cough Dextrose/Water (D5w) 1,000 mls @ 0 mls/hr IV .Q0M PRN PRN Reason: Hypoglycemia Potassium Chloride 60 meq/Miscellaneous Medication 1 each/ Sodium Chloride 530 mls @ 88.333 mls/hr IV ONE [facility] Stop: 05/19/18 18:00 Sodium Bicarbonate 150 meq/ (Dextrose/Water) 1,150 mls @ 100 mls/hr IV ONE [facility] Stop: 05/19/18 21:44 Insulin Human Lispro (Humalog) 0 units SC .MILD SLIDING SCALE PRN PRN Reason: Mild Correctional Scale Last Admin: 05/18/18 11:47 Dose: 2 unit Insulin Human Lispro (Humalog) 0 units SC .BEDTIME SLIDING SC PRN PRN Reason: Bedtime Correctional Scale Latanoprost (Xalatan 0.005% Ophth Soln) 1 drop EA EYE HS [facility] Last Admin: 05/18/18 20:52 Dose: 1 drop Loperamide HCl (Imodium) 2 mg PO PRN PRN PRN Reason: Diarrhea/Loose Stools Morphine Sulfate (Morphine) 4 mg SLOW IVP Q3H PRN PRN Reason: Pain Last Admin: 05/19/18 10:50 Dose: 4 mg Ondansetron HCl (Zofran Odt) 4 mg PO Q6H PRN PRN Reason: Nausea/Vomiting Ondansetron HCl (Zofran) 4 mg IVP Q6H PRN PRN Reason: Nausea/Vomiting Last Admin: 05/19/18 07:29 Dose: 4 mg Promethazine HCl (Phenergan) 25 mg IM/IV Q6H PRN PRN Reason: Nausea/Vomiting Senna/Docusate Sodium (Senokot S) 2 tab PO BID PRN PRN Reason: Constipation Sodium Chloride (Flush - Normal Saline) 10 ml IVF Q12HR [facility] Last Admin: 05/19/18 08:28 Dose: 10 ml Sodium Chloride (Flush - Normal Saline) 10 ml IVF PRN PRN PRN Reason: Saline Flush Last Admin: 05/18/18 05:14 Dose: 10 ml Timolol Maleate (Timoptic 0.5% [facility]) 1 drop EA EYE BID [facility] Last Admin: 05/19/18 08:26 Dose: 1 drop
[2018-05-19] MEDS: HumaLOG 300 UNITS/3 ML VIAL SC PRN (12:27)
[2018-05-19 12:29] VITALS: BMI 22.8
[2018-05-19 17:37] LABS: ALT (SGPT) 9 U/L (8-55); AST (SGOT) 13 U/L (5-34); Albumin 3.6 g/dL (3.4-4.8); Alkaline Phosphatase 62 U/L (40-150); Anion Gap 13 mmol/L (10-20); BUN (Urea Nitrogen) 83 mg/dL (8.4-25.7); Bilirubin, Total 0.3 mg/dL (0.2-1.2); Calc. Creatinine Clearance 15 mL/min (70-130); Calcium 9.1 mg/dL (7.8-10.44); Carbon Dioxide 16 mmol/L (23-31); Chloride 113 mmol/L (98-107); Estimated GFR-MDRD 10; Globulin 2.9 g/dL (2.4-3.5); Glucose 123 mg/dL (80-115); Potassium 3.3 mmol/L (3.5-5.1); Protein, Total 6.5 g/dL (5.8-8.1); Sodium 139 mmol/L (136-145)
[2018-05-19] MEDS: Famotidine/PF 20 mg/2ml Vial SLOW IVP SCH (19:17)
[2018-05-19] MEDS: Diphenoxylate HCl/Atropine Tablet PO PRN (19:26)
[2018-05-20] MEDS: Ondansetron PF 4 MG/2 ML Vial IVP PRN ×3 (03:36→17:33)
[2018-05-20] MEDS: Diphenoxylate HCl/Atropine Tablet PO PRN ×2 (03:36→20:48)
[2018-05-20] MEDS: Morphine 4 MG/ML VIAL SLOW IVP PRN ×4 (03:36→20:58)
[2018-05-20] MEDS: Latanoprost 0.005% Ophth Soln 2.5 ml Bottle EA EYE SCH ×2 (03:55→20:53)
[2018-05-20] MEDS: Timolol 0.5% Ophth Soln 5 ml Bottle EA EYE SCH ×3 (03:56→20:52)
[2018-05-20 04:23] LABS: ALT (SGPT) 11 U/L (8-55); AST (SGOT) 10 U/L (5-34); Albumin 3.6 g/dL (3.4-4.8); Alkaline Phosphatase 63 U/L (40-150); Anion Gap 15 mmol/L (10-20); BUN (Urea Nitrogen) 72 mg/dL (8.4-25.7); Bilirubin, Total 0.4 mg/dL (0.2-1.2); Calc. Creatinine Clearance 17 mL/min (70-130); Calcium 8.9 mg/dL (7.8-10.44); Carbon Dioxide 20 mmol/L (23-31); Chloride 106 mmol/L (98-107); Estimated GFR-MDRD 12; Globulin 2.8 g/dL (2.4-3.5); Glucose 185 mg/dL (80-115); Magnesium 1.7 mg/dL (1.6-2.6); Phosphorus 3.5 mg/dL (2.3-4.7); Potassium 2.6 mmol/L (3.5-5.1); Protein, Total 6.4 g/dL (5.8-8.1); Sodium 138 mmol/L (136-145); Uric Acid Less than 2.0 mg/dL (3.5-7.2)
[2018-05-20 04:29] LABS: Band 27 % (5-11); Hemoglobin 6.3 g/dL (14.0-18.0); Hypochromia SLIGHT = 6-15 cells (100X) (0-5/hpf); Lymphocytes 17 % (21-51); MDiff Complete? YES; Mean Corpuscular HGB CONC 36.4 g/dL (32.0-36.0); Mean Corpuscular Hemoglobin 33.6 pg (27.0-31.0); Mean Corpuscular Volume 92.2 fL (78.0-98.0); Mean Platelet Volume 8.1 fL (7.4-10.4); Metamyelocyte 1 % (0-0); Monocytes 7 % (0-10); Neutrophil 48 % (42-75); Platelet Count 286 thou/uL (130-400); Platelet Morphology Comment Appears Adequate; RBC Distribution Width 11.9 % (11.5-14.5); Red Blood Cell (RBC) Count 1.86 mill/uL (4.70-6.10); White Blood Cell (WBC) Count 8.5 thou/uL (4.8-10.8)
[2018-05-20] MEDS ORDERED: Potassium Chloride 20 MEQ TAB PO SCH (08:00)
[2018-05-20] MEDS ORDERED: Sterile Water 10 ML VIAL IVP SCH (09:04)
[2018-05-20] MEDS: Activase 2 MG VIAL CATH SCH ×2 (09:39→10:17)
[2018-05-20] MEDS: Enoxaparin Sodium 30 MG/0.3 ML SYRINGE SC SCH (09:41)
--- NOTE | 2018-05-20 09:52 | PRG ---
DATE OF SERVICE: 05/20/2018 SUBJECTIVE: Patient was seen and examined at bedside and overnight events noted. Patient denies any shortness of breath or chest pain or palpitation. No history of nausea or vomiting or diarrhea or fever or chills or cramps. OBJECTIVE: GENERAL: This is a well-built male, in no apparent distress. VITAL SIGNS: Temperature 97.6. Pulse 84. Respiratory rate 20. Blood pressure 110/63. HEENT: Atraumatic, normocephalic. Oral mucosa is moist NECK: Supple. CARDIOVASCULAR: S1, S2 heard. Rate and rhythm regular. RESPIRATORY: Clear to auscultation. GASTROINTESTINAL: Abdomen is soft. MUSCULOSKELETAL: No tenderness. No edema. DERMATOLOGIC: No skin rash. NEUROLOGIC: Alert and awake and oriented X3. No focal neurologic deficits. Moving all the extremities. PSYCHIATRIC: Mood and affect normal. LABORATORY DATA: Potassium is 2.6. Hemoglobin is 6.3. BUN is 72 and creatinine is 4.9. ASSESSMENT AND PLAN: 1. Acute kidney injury secondary to hyperuricemia, getting better, uric acid level is less than 2. No more rasburicase is needed, only one dose of rasburicase 3 mg given on 05/18/2018. 2. Hypokalemia. We will continue cautiously replacement. 3. Oliguric. Getting better. 4. Metabolic acidosis. Stable. 5. Non-oliguric kidney injury at this point. 6. Hyperphosphatemia. Better. 7. Edema. 8. Anemia. Possible hemolysis. G6PD level is pending. We will check LDH, direct bilirubin, and haptoglobin reticulocyte count. We will also check direct Allan test and we will have peripheral smear. We will follow up with Hem/Onc for further recommendation, again with type and crossmatch. Rule out any bleeding at this point, even though clinically the patient denies any symptoms. 9. Continue close monitoring. Repeat potassium after 60 mEq of supplements today and magnesium level too. We will also check CBC. Monitor it closely, with transfusion as indicated. Continue close monitoring. The patient currently denies any symptoms of chest pain or shortness of breath or exertional dyspnea. 10. The patient needs to be closely monitored. We will follow. Avoid nephrotoxins at this point. May need adequate hydration. Job ID: [id number]
--- NOTE | 2018-05-20 09:52 | PDOC.PN ---
- Subjective Encounter Start Date: 05/20/18 Encounter Start Time: 07:20 Patient seen and examined. No new complaints. No overnight events pt is able to go to restroom, feels weak, no chest pain - Objective Resuscitation Status - Order Detail: 05/16/18 17:43 Resuscitation Status Routine Resuscitation Status: FULL: Full Resuscitation Discussed with: Patient KEARA Reviewed: Yes Vital Signs & Weight: Vital Signs (12 hours) Temp Pulse Resp BP Pulse Ox 05/20/18 08:00 97.6 F 84 16 110/63 97 05/20/18 03:56 65 Weight Admit Weight 165 lb 5 oz Weight 173 lb 8 oz I&O: 05/19/18 05/20/18 05/21/18 06:59 06:59 07:59 Intake Total 1553 2650 Output Total 1550 Balance 1553 1100 Result Diagrams: 05/20/18 03:40 05/20/18 03:40 Additional Labs: Accuchecks 05/19/18 05/19/18 05/19/18 19:57 16:59 12:08 POC Glucose 227 H 123 H 203 H Phys Exam - Physical Examination Constitutional: NAD HEENT: PERRLA, moist MMs, sclera anicteric, oral pharynx no lesions Neck: no JVD, supple Respiratory: no wheezing, no rales, no rhonchi Cardiovascular: RRR, no significant murmur, no rub mediport in place Gastrointestinal: soft, non-tender, no distention, positive bowel sounds Musculoskeletal: no edema, pulses present Neurological: non-focal, normal sensation Lymphatic: no nodes Psychiatric: normal affect, A&O x 3 Skin: no rash, normal turgor Dx/Plan (1) Acute renal failure (ARF) Status: Acute Comment: likely plugging of kidneys by uric acid, severe creatinine elevation (2) Diarrhea Code(s): R19.7 - DIARRHEA, UNSPECIFIED Status: Acute Comment: likely due to chemo effect, C. 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 Code(s): C50.921 - MALIGNANT NEOPLASM OF UNSPECIFIED SITE OF RIGHT MALE BREAST Status: Chronic Comment: s/p mastectomy and lymph node dissection, on chemotherapy (7) Hypotension Status: Resolved Comment: with fluid administration (8) Anemia Code(s): D64.9 - ANEMIA, UNSPECIFIED Status: Acute - Plan cont current plan of care, plan discussed w/ family * as pt has new anemia, will do hemolysis work up * hematology to see * if hematology ok, will give one unit of blood * medication reviewed as below * symptomatic treatment * renal function improving * replace potassium * repeat labs tomorrow * discussed with family. Review of Systems - Review of Systems ENT: negative: Ear Pain, Ear Discharge, Nose Pain, Nose Discharge, Nose Congestion, Mouth Pain, Mouth Swelling, Throat Pain, Throat Swelling, Other Respiratory: negative: Cough, Dry, Shortness of Breath, Hemoptysis, SOB with Excertion, Pleuritic Pain, Sputum, Wheezing Cardiovascular: negative: chest pain, palpitations, orthopnea, paroxysmal nocturnal dyspnea, edema, light headedness, other Gastrointestinal: negative: Nausea, Vomiting, Abdominal Pain, Diarrhea, Constipation, Melena, Hematochezia, Other Genitourinary: negative: Dysuria, Frequency, Incontinence, Hematuria, Retention , Other Musculoskeletal: negative: Neck Pain, Shoulder Pain, Arm Pain, Back Pain, Hand Pain, Leg Pain, Foot Pain, Other - Medications/Allergies Allergies/Adverse Reactions: Allergies Allergy/AdvReac Type Severity Reaction Status Date / Time No Known Allergies Allergy Verified 03/31/18 13:45 Medications: Current Medications Acetaminophen (Tylenol) 650 mg PO Q4H PRN PRN Reason: Headache/Fever/Mild Pain (1-3) Acetaminophen (Tylenol) 650 mg SD Q4H PRN PRN Reason: Headache/Fever/Mild Pain (1-3) Hydrocodone Bitart/Acetaminophen ([place] 5/325) 1 tab PO Q4H PRN PRN Reason: Mild-Moderate Pain (1-5) Hydrocodone Bitart/Acetaminophen ([place] 5/325) 2 tab PO Q4H PRN PRN Reason: Severe Pain (7-10) Alteplase, Recombinant (Cathflo) 2 mg CATH ONE JOSE M Stop: 05/20/18 15:00 Last Admin: 05/20/18 09:39 Dose: 2 mg Dextrose/Water (Dextrose 50%) 25 gm SLOW IVP PRN PRN PRN Reason: Hypoglycemia Diphenoxylate HCl/Atropine (Lomotil) 1 tab PO QIDPRN PRN PRN Reason: Diarrhea/Loose Stools Last Admin: 05/20/18 03:36 Dose: 1 tab Diphenoxylate HCl/Atropine (Lomotil) 2 tab PO QIDPRN PRN PRN Reason: Diarrhea/Loose Stools Last Admin: 05/19/18 19:26 Dose: 2 tab Enoxaparin Sodium (Lovenox) 30 mg SC 0900 [facility] Last Admin: 05/20/18 09:41 Dose: 30 mg Famotidine (Pepcid) 20 mg SLOW IVP QPM [facility] Last Admin: 05/19/18 19:17 Dose: 20 mg Glucagon (Glucagon) 1 mg IM PRN PRN PRN Reason: Hypoglycemia Guaifenesin/Dextromethorphan (Robitussin Dm) 15 ml PO Q4H PRN PRN Reason: Cough Dextrose/Water (D5w) 1,000 mls @ 0 mls/hr IV .Q0M PRN PRN Reason: Hypoglycemia Potassium Chloride 60 meq/ (Sodium Chloride) 530 mls @ 88.333 mls/hr IVPB 0900 [facility] Stop: 05/20/18 14:59 Sodium Chloride (Normal Saline 0.9%) 1,000 mls @ 50 mls/hr IV .Q20H [facility] Insulin Human Lispro (Humalog) 0 units SC .MILD SLIDING SCALE PRN PRN Reason: Mild Correctional Scale Last Admin: 05/19/18 12:27 Dose: 3 unit Insulin Human Lispro (Humalog) 0 units SC .BEDTIME SLIDING SC PRN PRN Reason: Bedtime Correctional Scale Latanoprost (Xalatan 0.005% Ophth Soln) 1 drop EA EYE HS [facility] Last Admin: 05/20/18 03:55 Dose: Not Given Loperamide HCl (Imodium) 2 mg PO PRN PRN PRN Reason: Diarrhea/Loose Stools Last Admin: 05/20/18 09:43 Dose: 2 mg Morphine Sulfate (Morphine) 4 mg SLOW IVP Q3H PRN PRN Reason: Pain Last Admin: 05/20/18 03:36 Dose: 4 mg Ondansetron HCl (Zofran Odt) 4 mg PO Q6H PRN PRN Reason: Nausea/Vomiting Ondansetron HCl (Zofran) 4 mg IVP Q6H PRN PRN Reason: Nausea/Vomiting Last Admin: 05/20/18 03:36 Dose: 4 mg Potassium Chloride (K-Dur) 40 meq PO 0800 [facility] Stop: 05/20/18 10:00 Promethazine HCl (Phenergan) 25 mg IM/IV Q6H PRN PRN Reason: Nausea/Vomiting Senna/Docusate Sodium (Senokot S) 2 tab PO BID PRN PRN Reason: Constipation Sodium Chloride (Flush - Normal Saline) 10 ml IVF Q12HR [facility] Last Admin: 05/19/18 23:24 Dose: Not Given Sodium Chloride (Flush - Normal Saline) 10 ml IVF PRN PRN PRN Reason: Saline Flush Last Admin: 05/20/18 03:38 Dose: 10 ml Sodium Chloride (Flush - Normal Saline) 10 ml IVF PRN PRN PRN Reason: Saline Flush Sterile Water (Water For Injection) 10 ml IVP ONE [facility] Stop: 05/20/18 15:00 Timolol Maleate (Timoptic 0.5% Oph Soln) 1 drop EA EYE BID [facility] Last Admin: 05/20/18 03:56 Dose: Not Given
[2018-05-20] MEDS: HumaLOG 300 UNITS/3 ML VIAL SC PRN (11:31)
[2018-05-20] MEDS: Sodium Chloride 0.9% 1,000 ML IV SCH (12:36)
[2018-05-20 13:07] LABS: Reticulocyte Count 1.6 % (0.5-1.5)
[2018-05-20 13:22] LABS: Bilirubin, Direct 0.2 mg/dL (0.1-0.3); Bilirubin, Total 0.4 mg/dL (0.2-1.2)
[2018-05-20 13:44] LABS: Mean Corpuscular HGB CONC 35.9 g/dL (32.0-36.0); Mean Corpuscular Hemoglobin 33.2 pg (27.0-31.0); Mean Corpuscular Volume 92.3 fL (78.0-98.0); Mean Platelet Volume 8.5 fL (7.4-10.4); Platelet Count 221 thou/uL (130-400); RBC Distribution Width 11.8 % (11.5-14.5); Red Blood Cell (RBC) Count 3.12 mill/uL (4.70-6.10); White Blood Cell (WBC) Count 7.3 thou/uL (4.8-10.8)
[2018-05-20 13:51] LABS: Albumin 3.5 g/dL (3.4-4.8)
[2018-05-20 13:52] LABS: Chloride 105 mmol/L (98-107); Magnesium 1.6 mg/dL (1.6-2.6); Sodium 137 mmol/L (136-145)
[2018-05-20 13:53] LABS: Glucose 227 mg/dL (80-115)
[2018-05-20 13:54] LABS: Globulin 2.9 g/dL (2.4-3.5); Protein, Total 6.4 g/dL (5.8-8.1)
[2018-05-20 13:55] LABS: Anion Gap 15 mmol/L (10-20); Carbon Dioxide 19 mmol/L (23-31)
[2018-05-20 13:56] LABS: Alkaline Phosphatase 67 U/L (40-150)
[2018-05-20 13:57] LABS: Calc. Creatinine Clearance 19 mL/min (70-130); Estimated GFR-MDRD 13; Phosphorus 3.2 mg/dL (2.3-4.7)
[2018-05-20 13:58] LABS: BUN (Urea Nitrogen) 67 mg/dL (8.4-25.7)
[2018-05-20 13:59] LABS: ALT (SGPT) 10 U/L (8-55); AST (SGOT) 14 U/L (5-34)
[2018-05-20 14:00] LABS: Uric Acid Less than 2.0 mg/dL (3.5-7.2)
[2018-05-20 14:06] LABS: Potassium 2.4 mmol/L (3.5-5.1)
[2018-05-20 14:11] LABS: Band 39 % (5-11); Lymphocytes 4 % (21-51); MDiff Complete? YES; Metamyelocyte 2 % (0-0); Monocytes 9 % (0-10); Myelocyte 2 % (0-0); Neutrophil 44 % (42-75); Nucleated RBC 1 % (0); Platelet Morphology Comment Appears Adequate; Polychromasia SLIGHT = 2-3 cells (100X) (0-2/hpf)
[2018-05-20 14:13] LABS: Hemoglobin 10.3 g/dL (14.0-18.0)
[2018-05-20] MEDS: Opium Tincture 10% (1ml Charge) PO SCH ×2 (16:59→23:08)
[2018-05-20] MEDS: Famotidine/PF 20 mg/2ml Vial SLOW IVP SCH (20:48)
[2018-05-20 22:07] LABS: G-6-PD,Quant 311 (146-376); G-6-PD,RBC 3.23 x10E6/uL (4.14-5.80)
[2018-05-21 04:57] LABS: ALT (SGPT) 8 U/L (8-55); AST (SGOT) 9 U/L (5-34); Alkaline Phosphatase 56 U/L (40-150); Anion Gap 12 mmol/L (10-20); BUN (Urea Nitrogen) 51 mg/dL (8.4-25.7); Bilirubin, Total 0.2 mg/dL (0.2-1.2); Calc. Creatinine Clearance 26 mL/min (70-130); Calcium 8.5 mg/dL (7.8-10.44); Carbon Dioxide 20 mmol/L (23-31); Chloride 112 mmol/L (98-107); Estimated GFR-MDRD 19; Globulin 2.5 g/dL (2.4-3.5); Glucose 127 mg/dL (80-115); Phosphorus 3.1 mg/dL (2.3-4.7); Protein, Total 5.5 g/dL (5.8-8.1); Sodium 141 mmol/L (136-145); Uric Acid Less than 2.0 mg/dL (3.5-7.2)
[2018-05-21 05:01] LABS: Potassium 2.9 mmol/L (3.5-5.1)
[2018-05-21] MEDS: Sodium Chloride 0.9% 1,000 ML IV SCH ×2 (05:18→21:24)
[2018-05-21 05:23] LABS: Band 12 % (5-11); Hemoglobin 9.3 g/dL (14.0-18.0); Lymphocytes 12 % (21-51); MDiff Complete? YES; Mean Corpuscular HGB CONC 35.4 g/dL (32.0-36.0); Mean Corpuscular Hemoglobin 33.3 pg (27.0-31.0); Mean Platelet Volume 7.7 fL (7.4-10.4); Metamyelocyte 2 % (0-0); Monocytes 11 % (0-10); Myelocyte 2 % (0-0); Neutrophil 60 % (42-75); Platelet Count 181 thou/uL (130-400); Platelet Morphology Comment Appears Adequate; RBC Distribution Width 12.1 % (11.5-14.5); RBC Morphology Normal; White Blood Cell (WBC) Count 6.6 thou/uL (4.8-10.8)
[2018-05-21] MEDS ORDERED: Potassium Chloride 20 MEQ TAB PO SCH (05:30)
[2018-05-21] MEDS: Diphenoxylate HCl/Atropine Tablet PO PRN (07:35)
[2018-05-21] MEDS: Morphine 4 MG/ML VIAL SLOW IVP PRN ×3 (07:36→21:17)
[2018-05-21] MEDS: Ondansetron PF 4 MG/2 ML Vial IVP PRN ×3 (07:36→21:16)
[2018-05-21] MEDS: Enoxaparin Sodium 30 MG/0.3 ML SYRINGE SC SCH (07:41)
[2018-05-21] MEDS: Timolol 0.5% Ophth Soln 5 ml Bottle EA EYE SCH ×2 (07:41→21:16)
[2018-05-21] MEDS: Opium Tincture 10% (1ml Charge) PO SCH ×4 (07:44→21:16)
--- NOTE | 2018-05-21 09:36 | PDOC.PN ---
- Subjective Encounter Start Date: 05/21/18 Encounter Start Time: 07:20 Patient seen and examined. No new complaints. No overnight events pt still has diarrhoea, no fever - Objective Resuscitation Status - Order Detail: 05/16/18 17:43 Resuscitation Status Routine Resuscitation Status: FULL: Full Resuscitation Discussed with: Patient KEARA Reviewed: Yes Vital Signs & Weight: Vital Signs (12 hours) Temp Pulse Resp BP BP Pulse Ox 05/21/18 08:00 97.9 F 71 16 102/59 L 97 05/21/18 07:41 71 109/60 05/20/18 20:52 71 109/60 Weight Admit Weight 165 lb 5 oz Weight 173 lb 8 oz I&O: 05/20/18 05/21/18 05/22/18 05:59 06:59 06:59 Intake Total 240 Output Total Balance 240 Result Diagrams: 05/21/18 04:20 05/21/18 04:20 Additional Labs: Accuchecks 05/21/18 05/20/18 05/20/18 05:43 20:09 16:14 POC Glucose 148 H 190 H 150 H 05/20/18 11:17 POC Glucose 250 H Phys Exam - Physical Examination Constitutional: NAD HEENT: PERRLA, moist MMs, sclera anicteric Neck: no JVD, supple Respiratory: no wheezing, no rales, no rhonchi Cardiovascular: RRR, no significant murmur, no rub Gastrointestinal: soft, non-tender, no distention, positive bowel sounds Musculoskeletal: no edema, pulses present Neurological: non-focal, normal sensation Lymphatic: no nodes Psychiatric: normal affect, A&O x 3 Skin: no rash, normal turgor Dx/Plan (1) Acute renal failure (ARF) Status: Acute Comment: likely plugging of kidneys by uric acid, severe creatinine elevation (2) Diarrhea Code(s): R19.7 - DIARRHEA, UNSPECIFIED Status: Acute Comment: likely due to chemo effect, C. 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 Code(s): C50.921 - MALIGNANT NEOPLASM OF UNSPECIFIED SITE OF RIGHT MALE BREAST Status: Chronic Comment: s/p mastectomy and lymph node dissection, on chemotherapy (7) Hypotension Status: Resolved Comment: with fluid administration (8) Anemia Code(s): D64.9 - ANEMIA, UNSPECIFIED Status: Acute (9) Hypomagnesemia Code(s): E83.42 - HYPOMAGNESEMIA Status: Acute - Plan cont current plan of care, plan discussed w/ family * add florastor for diarrhoea * replace magnesium and potassium * creatinine is continue to improve and will repeat labs tomorrow, if continue to improve, may consider dc IVF tomorrow * medication reviewed as below * symptomatic treatment * discussed with family. Review of Systems - Review of Systems ENT: negative: Ear Pain, Ear Discharge, Nose Pain, Nose Discharge, Nose Congestion, Mouth Pain, Mouth Swelling, Throat Pain, Throat Swelling, Other Respiratory: negative: Cough, Dry, Shortness of Breath, Hemoptysis, SOB with Excertion, Pleuritic Pain, Sputum, Wheezing Cardiovascular: negative: chest pain, palpitations, orthopnea, paroxysmal nocturnal dyspnea, edema, light headedness, other Gastrointestinal: Diarrhea. negative: Nausea, Vomiting, Abdominal Pain, Constipation, Melena, Hematochezia, Other Genitourinary: negative: Dysuria, Frequency, Incontinence, Hematuria, Retention , Other Musculoskeletal: negative: Neck Pain, Shoulder Pain, Arm Pain, Back Pain, Hand Pain, Leg Pain, Foot Pain, Other - Medications/Allergies Allergies/Adverse Reactions: Allergies Allergy/AdvReac Type Severity Reaction Status Date / Time No Known Allergies Allergy Verified 03/31/18 13:45 Medications: Current Medications Acetaminophen (Tylenol) 650 mg PO Q4H PRN PRN Reason: Headache/Fever/Mild Pain (1-3) Acetaminophen (Tylenol) 650 mg [place] Q4H PRN PRN Reason: Headache/Fever/Mild Pain (1-3) Hydrocodone Bitart/Acetaminophen ([place] 5/325) 1 tab PO Q4H PRN PRN Reason: Mild-Moderate Pain (1-5) Hydrocodone Bitart/Acetaminophen ([place] 5/325) 2 tab PO Q4H PRN PRN Reason: Severe Pain (7-10) Dextrose/Water (Dextrose 50%) 25 gm SLOW IVP PRN PRN PRN Reason: Hypoglycemia Diphenoxylate HCl/Atropine (Lomotil) 1 tab PO QIDPRN PRN PRN Reason: Diarrhea/Loose Stools Last Admin: 05/21/18 07:35 Dose: 1 tab Diphenoxylate HCl/Atropine (Lomotil) 2 tab PO QIDPRN PRN PRN Reason: Diarrhea/Loose Stools Last Admin: 05/20/18 20:48 Dose: 2 tab Enoxaparin Sodium (Lovenox) 30 mg SC 0900 [facility] Last Admin: 05/21/18 07:41 Dose: 30 mg Famotidine (Pepcid) 20 mg SLOW IVP QPM [facility] Last Admin: 05/20/18 20:48 Dose: 20 mg Glucagon (Glucagon) 1 mg IM PRN PRN PRN Reason: Hypoglycemia Guaifenesin/Dextromethorphan (Robitussin Dm) 15 ml PO Q4H PRN PRN Reason: Cough Dextrose/Water (D5w) 1,000 mls @ 0 mls/hr IV .Q0M PRN PRN Reason: Hypoglycemia Sodium Chloride (Normal Saline 0.9%) 1,000 mls @ 50 mls/hr IV .Q20H [facility] Last Admin: 05/21/18 05:18 Dose: 1,000 mls Magnesium Sulfate 1 gm/ Sodium (Chloride) 102 mls @ 100 mls/hr IVPB ONE [facility] Stop: 05/21/18 11:00 Last Admin: 05/21/18 09:04 Dose: 102 mls Potassium Chloride 60 meq/ (Sodium Chloride) 530 mls @ 88.333 mls/hr IVPB 0900 [facility] Stop: 05/21/18 14:59 Insulin Human Lispro (Humalog) 0 units SC .MILD SLIDING SCALE PRN PRN Reason: Mild Correctional Scale Last Admin: 05/20/18 11:31 Dose: 3 unit Insulin Human Lispro (Humalog) 0 units SC .BEDTIME SLIDING SC PRN PRN Reason: Bedtime Correctional Scale Latanoprost (Xalatan 0.005% Ophth Soln) 1 drop EA EYE HS [facility] Last Admin: 05/20/18 20:53 Dose: 1 drop Loperamide HCl (Imodium) 2 mg PO PRN PRN PRN Reason: Diarrhea/Loose Stools Last Admin: 05/20/18 09:43 Dose: 2 mg Morphine Sulfate (Morphine) 4 mg SLOW IVP Q3H PRN PRN Reason: Pain Last Admin: 05/21/18 07:36 Dose: 4 mg Ondansetron HCl (Zofran Odt) 4 mg PO Q6H PRN PRN Reason: Nausea/Vomiting Ondansetron HCl (Zofran) 4 mg IVP Q6H PRN PRN Reason: Nausea/Vomiting Last Admin: 05/21/18 07:36 Dose: 4 mg Opium Tincture (Opium Tincture 10%) 0 ml PO QID [facility] Last Admin: 05/21/18 07:44 Dose: Not Given Promethazine HCl (Phenergan) 25 mg IM/IV Q6H PRN PRN Reason: Nausea/Vomiting Saccharomyces Boulardii (Florastor) 250 mg PO BID [facility] Senna/Docusate Sodium (Senokot S) 2 tab PO BID PRN PRN Reason: Constipation Sodium Chloride (Flush - Normal Saline) 10 ml IVF Q12HR [facility] Last Admin: 05/21/18 07:42 Dose: 10 ml Sodium Chloride (Flush - Normal Saline) 10 ml IVF PRN PRN PRN Reason: Saline Flush Last Admin: 05/20/18 03:38 Dose: 10 ml Sodium Chloride (Flush - Normal Saline) 10 ml IVF PRN PRN PRN Reason: Saline Flush Timolol Maleate (Timoptic 0.5% Ophth Soln) 1 drop EA EYE BID [facility] Last Admin: 05/21/18 07:41 Dose: 1 drop
[2018-05-21] MEDS: Saccharomyces boulardii 250 MG CAP PO SCH ×2 (10:13→21:15)
[2018-05-21] MEDS: HumaLOG 300 UNITS/3 ML VIAL SC PRN ×2 (12:22→16:11)
[2018-05-21 14:34] LABS: Potassium 4.1 mmol/L (3.5-5.1)
--- NOTE | 2018-05-21 17:39 | PRG ---
DATE OF SERVICE: 05/21/2018 SUBJECTIVE: Patient was seen and examined at bedside and overnight events noted. Patient denies any shortness of breath or chest pain or palpitation. No history of nausea or vomiting or diarrhea or fever or chills or cramps. OBJECTIVE: GENERAL: This is a well-built male in no apparent distress. VITAL SIGNS: Temperature 97.9, pulse 71, respiratory rate 16, blood pressure 108/59. HEENT: Atraumatic, normocephalic. Oral mucosa is moist NECK: Supple. CARDIOVASCULAR: S1, S2 heard. Rate and rhythm regular. RESPIRATORY: Clear to auscultation. GASTROINTESTINAL: Abdomen is soft. MUSCULOSKELETAL: No tenderness. No edema. DERMATOLOGIC: No skin rash. NEUROLOGIC: Alert and awake and oriented X3. No focal neurologic deficits. Moving all the extremities. PSYCHIATRIC: Mood and affect normal. LABORATORY DATA: Potassium is 4.1, BUN is 51, creatinine is 3.3. ASSESSMENT AND PLAN: 1. Acute kidney injury secondary to hyperuricemia, getting better. Uric acid level is less than 2. Creatinine is 3.3 today. 2. Hypokalemia, replaced. Potassium is currently 4.1. Monitor magnesium and potassium. 3. Oliguria, better. 4. Metabolic acidosis, stable. 5. Hyperphosphatemia, better. 6. Edema, controlled. 7. Anemia. Lab error. We will continue to monitor. Hemoglobin is stable. Hemolysis workup was negative. We will follow. 8. Hypoalbuminemia. Encourage p.o. intake. We will monitor renal function. Avoid nephrotoxins. Job ID: [id number]
[2018-05-21] MEDS: Famotidine/PF 20 mg/2ml Vial SLOW IVP SCH (21:15)
[2018-05-21] MEDS: Latanoprost 0.005% Ophth Soln 2.5 ml Bottle EA EYE SCH (21:16)
--- NOTE | 2018-05-22 00:46 | PRG ---
DATE OF SERVICE: 05/19/2018 SUBJECTIVE: Patient was seen and examined at bedside and overnight events noted. Patient denies any shortness of breath or chest pain or palpitation. No history of nausea or vomiting or diarrhea or fever or chills or cramps. OBJECTIVE: GENERAL: This is a well-built male, in no apparent distress. VITAL SIGNS: Temperature pulse 69, respiratory rate 16, blood pressure 84/52. HEENT: Atraumatic, normocephalic. Oral mucosa is moist NECK: Supple. CARDIOVASCULAR: S1, S2 heard. Rate and rhythm regular. RESPIRATORY: Clear to auscultation. GASTROINTESTINAL: Abdomen is soft. MUSCULOSKELETAL: No tenderness. No edema. DERMATOLOGIC: No skin rash. NEUROLOGIC: Alert and awake and oriented X3. No focal neurologic deficits. Moving all the extremities. PSYCHIATRIC: Mood and affect normal. LABORATORY DATA: Potassium is 3.1. BUN is 88 and creatinine 6.4. ASSESSMENT AND PLAN: 1. Acute kidney injury on chronic kidney disease, stage 2, with improvement in renal function, improvement in urine output. We will continue to monitor. 2. Hyperuricemia, better. No more need for rasburicase. We will monitor and add allopurinol as tolerated. 3. Hypokalemia. We will be cautious with supplements. 4. Hyperphosphatemia. 5. Edema, controlled. 6. . 7. Anemia, follow with Hematology/Oncology. 8. Metabolic acidosis. We will give bicarb drip. Monitor electrolytes closely. Plan is to replace electrolytes including potassium. We will recheck labs in the morning and recheck one hour after the infusion. We will continue to follow. Job ID: [id number]
[2018-05-22 06:16] LABS: ALT (SGPT) 7 U/L (8-55); AST (SGOT) 10 U/L (5-34); Albumin 2.9 g/dL (3.4-4.8); Alkaline Phosphatase 53 U/L (40-150); Anion Gap 10 mmol/L (10-20); BUN (Urea Nitrogen) 29 mg/dL (8.4-25.7); Bilirubin, Total 0.2 mg/dL (0.2-1.2); Calc. Creatinine Clearance 41 mL/min (70-130); Calcium 8.4 mg/dL (7.8-10.44); Carbon Dioxide 21 mmol/L (23-31); Chloride 111 mmol/L (98-107); Estimated GFR-MDRD 32; Globulin 2.4 g/dL (2.4-3.5); Glucose 129 mg/dL (80-115); Magnesium 1.4 mg/dL (1.6-2.6); Phosphorus 2.2 mg/dL (2.3-4.7); Potassium 3.2 mmol/L (3.5-5.1); Protein, Total 5.3 g/dL (5.8-8.1); Sodium 139 mmol/L (136-145); Uric Acid Less than 2.0 mg/dL (3.5-7.2)
[2018-05-22 06:31] LABS: Band 2 % (5-11); Hemoglobin 9.6 g/dL (14.0-18.0); Hypochromia SLIGHT = 6-15 cells (100X) (0-5/hpf); Lymphocytes 18 % (21-51); MDiff Complete? YES; Mean Corpuscular HGB CONC 33.4 g/dL (32.0-36.0); Mean Corpuscular Hemoglobin 31.6 pg (27.0-31.0); Mean Corpuscular Volume 94.6 fL (78.0-98.0); Mean Platelet Volume 7.5 fL (7.4-10.4); Monocytes 20 % (0-10); Neutrophil 60 % (42-75); Nucleated RBC 1 % (0); Platelet Count 177 thou/uL (130-400); Platelet Morphology Comment Appears Adequate; RBC Distribution Width 12.3 % (11.5-14.5); Red Blood Cell (RBC) Count 3.04 mill/uL (4.70-6.10); White Blood Cell (WBC) Count 5.1 thou/uL (4.8-10.8)
[2018-05-22] MEDS ORDERED: Magnesium Sulfate 3 GM in Sodium Chloride 0.9% 100 ML IVPB SCH (07:30)
[2018-05-22] MEDS ORDERED: Potassium Phosphate 30 MMOL in Sodium Chloride 0.9% 500 ML IVPB SCH (07:30)
[2018-05-22] MEDS: Enoxaparin Sodium 30 MG/0.3 ML SYRINGE SC SCH (08:28)
[2018-05-22] MEDS: Timolol 0.5% Ophth Soln 5 ml Bottle EA EYE SCH ×2 (08:28→20:16)
[2018-05-22] MEDS: Saccharomyces boulardii 250 MG CAP PO SCH ×2 (08:29→20:15)
[2018-05-22] MEDS: Diphenoxylate HCl/Atropine Tablet PO PRN ×2 (08:29→20:21)
[2018-05-22] MEDS: Opium Tincture 10% (1ml Charge) PO SCH ×3 (08:29→20:16)
[2018-05-22] MEDS: Ondansetron PF 4 MG/2 ML Vial IVP PRN ×2 (08:30→17:22)
[2018-05-22] MEDS: Morphine 4 MG/ML VIAL SLOW IVP PRN ×4 (08:31→21:17)
--- NOTE | 2018-05-22 11:04 | PDOC.PN ---
- Subjective Encounter Start Date: 05/22/18 Encounter Start Time: 08:00 Patient seen and examined. No new complaints. No overnight events - Objective Resuscitation Status - Order Detail: 05/16/18 17:43 Resuscitation Status Routine Resuscitation Status: FULL: Full Resuscitation Discussed with: Patient KEARA Reviewed: Yes Vital Signs & Weight: Vital Signs (12 hours) Temp Pulse Resp BP Pulse Ox 05/22/18 08:28 63 05/22/18 08:00 98.0 F 67 18 107/69 98 Weight Admit Weight 165 lb 5 oz Weight 173 lb 8 oz I&O: 05/21/18 05/22/18 05/23/18 06:59 06:59 06:59 Intake Total 2440 Output Total 1000 Balance 1440 Result Diagrams: 05/22/18 05:30 05/22/18 05:30 Additional Labs: Accuchecks 05/22/18 05/21/18 05/21/18 05:35 21:28 16:04 POC Glucose 144 H 163 H 195 H 05/21/18 11:35 POC Glucose 260 H Phys Exam - Physical Examination Constitutional: NAD HEENT: PERRLA, moist MMs, sclera anicteric Neck: no JVD, supple Respiratory: no wheezing, no rales, no rhonchi Cardiovascular: RRR, no significant murmur, no rub Gastrointestinal: soft, non-tender, no distention, positive bowel sounds Musculoskeletal: no edema, pulses present Neurological: non-focal, normal sensation Lymphatic: no nodes Psychiatric: normal affect, A&O x 3 Skin: no rash, normal turgor Dx/Plan (1) Acute renal failure (ARF) Status: Acute Comment: likely plugging of kidneys by uric acid, severe creatinine elevation (2) Diarrhea Code(s): R19.7 - DIARRHEA, UNSPECIFIED Status: Acute Comment: likely due to chemo effect, C. 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 Code(s): C50.921 - MALIGNANT NEOPLASM OF UNSPECIFIED SITE OF RIGHT MALE BREAST Status: Chronic Comment: s/p mastectomy and lymph node dissection, on chemotherapy (7) Hypotension Status: Resolved Comment: with fluid administration (8) Anemia Code(s): D64.9 - ANEMIA, UNSPECIFIED Status: Acute - Plan cont current plan of care, plan discussed w/ family * medication reviewed as below * symptomatic treatment * continue IVF * will replace potassium phosphate and magnesium * will ask nephrology to consider DC IVF and repeat labs tomorrow * will consider discharge when nephrology and hematology ok, may be tomorrow. Review of Systems - Review of Systems ENT: negative: Ear Pain, Ear Discharge, Nose Pain, Nose Discharge, Nose Congestion, Mouth Pain, Mouth Swelling, Throat Pain, Throat Swelling, Other Respiratory: negative: Cough, Dry, Shortness of Breath, Hemoptysis, SOB with Excertion, Pleuritic Pain, Sputum, Wheezing Cardiovascular: negative: chest pain, palpitations, orthopnea, paroxysmal nocturnal dyspnea, edema, light headedness, other Gastrointestinal: negative: Nausea, Vomiting, Abdominal Pain, Diarrhea, Constipation, Melena, Hematochezia, Other Genitourinary: negative: Dysuria, Frequency, Incontinence, Hematuria, Retention , Other Musculoskeletal: negative: Neck Pain, Shoulder Pain, Arm Pain, Back Pain, Hand Pain, Leg Pain, Foot Pain, Other - Medications/Allergies Allergies/Adverse Reactions: Allergies Allergy/AdvReac Type Severity Reaction Status Date / Time No Known Allergies Allergy Verified 03/31/18 13:45 Medications: Current Medications Acetaminophen (Tylenol) 650 mg PO Q4H PRN PRN Reason: Headache/Fever/Mild Pain (1-3) Acetaminophen (Tylenol) 650 mg [place] Q4H PRN PRN Reason: Headache/Fever/Mild Pain (1-3) Hydrocodone Bitart/Acetaminophen ([place] 5/325) 1 tab PO Q4H PRN PRN Reason: Mild-Moderate Pain (1-5) Hydrocodone Bitart/Acetaminophen ([place] 5/325) 2 tab PO Q4H PRN PRN Reason: Severe Pain (7-10) Dextrose/Water (Dextrose 50%) 25 gm SLOW IVP PRN PRN PRN Reason: Hypoglycemia Diphenoxylate HCl/Atropine (Lomotil) 1 tab PO QIDPRN PRN PRN Reason: Diarrhea/Loose Stools Last Admin: 05/22/18 08:29 Dose: 1 tab Diphenoxylate HCl/Atropine (Lomotil) 2 tab PO QIDPRN PRN PRN Reason: Diarrhea/Loose Stools Last Admin: 05/20/18 20:48 Dose: 2 tab Enoxaparin Sodium (Lovenox) 30 mg SC 0900 [facility] Last Admin: 05/22/18 08:28 Dose: 30 mg Famotidine (Pepcid) 20 mg SLOW IVP QPM [facility] Last Admin: 05/21/18 21:15 Dose: 20 mg Glucagon (Glucagon) 1 mg IM PRN PRN PRN Reason: Hypoglycemia Guaifenesin/Dextromethorphan (Robitussin Dm) 15 ml PO Q4H PRN PRN Reason: Cough Dextrose/Water (D5w) 1,000 mls @ 0 mls/hr IV .Q0M PRN PRN Reason: Hypoglycemia Sodium Chloride (Normal Saline 0.9%) 1,000 mls @ 50 mls/hr IV .Q20H [facility] Last Admin: 05/21/18 21:24 Dose: 1,000 mls Potassium Phosphate 30 mmol/ (Sodium Chloride) 510 mls @ 83.3 mls/hr IVPB 0730 [facility] Stop: 05/22/18 13:38 Last Admin: 05/22/18 10:00 Dose: 510 mls Insulin Human Lispro (Humalog) 0 units SC .MILD SLIDING SCALE PRN PRN Reason: Mild Correctional Scale Last Admin: 05/21/18 16:11 Dose: 2 unit Insulin Human Lispro (Humalog) 0 units SC .BEDTIME SLIDING SC PRN PRN Reason: Bedtime Correctional Scale Latanoprost (Xalatan 0.005% Ophth Soln) 1 drop EA EYE HS [facility] Last Admin: 05/21/18 21:16 Dose: 1 drop Loperamide HCl (Imodium) 2 mg PO PRN PRN PRN Reason: Diarrhea/Loose Stools Last Admin: 05/20/18 09:43 Dose: 2 mg Morphine Sulfate (Morphine) 4 mg SLOW IVP Q3H PRN PRN Reason: Pain Last Admin: 05/22/18 08:31 Dose: 4 mg Ondansetron HCl (Zofran Odt) 4 mg PO Q6H PRN PRN Reason: Nausea/Vomiting Ondansetron HCl (Zofran) 4 mg IVP Q6H PRN PRN Reason: Nausea/Vomiting Last Admin: 05/22/18 08:30 Dose: 4 mg Opium Tincture (Opium Tincture 10%) 0 ml PO QID [facility] Last Admin: 05/22/18 08:29 Dose: Not Given Promethazine HCl (Phenergan) 25 mg IM/IV Q6H PRN PRN Reason: Nausea/Vomiting Saccharomyces Boulardii (Florastor) 250 mg PO BID [facility] Last Admin: 05/22/18 08:29 Dose: 250 mg Senna/Docusate Sodium (Senokot S) 2 tab PO BID PRN PRN Reason: Constipation Sodium Chloride (Flush - Normal Saline) 10 ml IVF Q12HR [facility] Last Admin: 05/22/18 08:35 Dose: 10 ml Sodium Chloride (Flush - Normal Saline) 10 ml IVF PRN PRN PRN Reason: Saline Flush Last Admin: 05/20/18 03:38 Dose: 10 ml Sodium Chloride (Flush - Normal Saline) 10 ml IVF PRN PRN PRN Reason: Saline Flush Timolol Maleate (Timoptic 0.5% Ophth Soln) 1 drop EA EYE BID [facility] Last Admin: 05/22/18 08:28 Dose: 1 drop
--- NOTE | 2018-05-22 12:47 | PRG ---
DATE OF SERVICE: 05/22/2018 SUBJECTIVE: A 62-year-old gentleman being seen for acute kidney injury. The patient denies nausea, vomiting, or chest pain. OBJECTIVE: GENERAL: The patient is awake and alert. VITAL SIGNS: Afebrile, pulse 67, breathing 16, blood pressure 107/69. GENERAL APPEARANCE AND MENTAL STATUS: Fair. HEAD/NECK: Normocephalic. Atraumatic. EYES: EOMI. No deformity. EARS: Clear. No ulcers. NOSE: Intact. No lesions. MOUTH: Clear. No discharge. THROAT: Clear. No exudate. LUNGS: Clear. No crackles. CARDIAC: S1, S2. No rub. ABDOMEN: Benign. Bowel sounds positive. GENITALIA/RECTUM: Glover absent. BACK/EXTREMITIES: Edema 0+. NEUROLOGICAL: Alert and motor intact. SKIN: LYMPHATICS: LABORATORY DATA: Hemoglobin 9.6, creatinine 2.1. ASSESSMENT: 1. Acute kidney injury, improved. 2. Hypertension, stable. 3. Anemia, stable. 4. Metabolic acidosis, stable. 5. Hypokalemia. Recommend 20 mEq of potassium. 6. Hypomagnesemia. Recommend 1 g of magnesium sulfate IV. Job ID: [id number]
[2018-05-22] MEDS: HumaLOG 300 UNITS/3 ML VIAL SC PRN (12:53)
[2018-05-22 13:55] LABS: Anion Gap 10 mmol/L (10-20); BUN (Urea Nitrogen) 25 mg/dL (8.4-25.7); Calc. Creatinine Clearance 45 mL/min (70-130); Calcium 8.4 mg/dL (7.8-10.44); Carbon Dioxide 23 mmol/L (23-31); Chloride 111 mmol/L (98-107); Estimated GFR-MDRD 36; Glucose 248 mg/dL (80-115); Magnesium 2.1 mg/dL (1.6-2.6); Potassium 3.6 mmol/L (3.5-5.1); Sodium 140 mmol/L (136-145)
[2018-05-22] MEDS: Sodium Chloride 0.9% 1,000 ML IV SCH (17:21)
[2018-05-22] MEDS: Famotidine/PF 20 mg/2ml Vial SLOW IVP SCH (20:15)
[2018-05-22] MEDS: Latanoprost 0.005% Ophth Soln 2.5 ml Bottle EA EYE SCH (20:16)
[2018-05-23 05:08] LABS: Band 6 % (5-11); Hemoglobin 8.6 g/dL (14.0-18.0); Lymphocytes 11 % (21-51); MDiff Complete? YES; Mean Corpuscular Hemoglobin 32.4 pg (27.0-31.0); Mean Corpuscular Volume 92.8 fL (78.0-98.0); Mean Platelet Volume 7.5 fL (7.4-10.4); Metamyelocyte 4 % (0-0); Monocytes 18 % (0-10); Myelocyte 2 % (0-0); Neutrophil 59 % (42-75); Platelet Count 185 thou/uL (130-400); Platelet Morphology Comment Appears Adequate; RBC Distribution Width 12.1 % (11.5-14.5); Red Blood Cell (RBC) Count 2.64 mill/uL (4.70-6.10); White Blood Cell (WBC) Count 6.3 thou/uL (4.8-10.8)
[2018-05-23 05:24] LABS: Anion Gap 8 mmol/L (10-20); BUN (Urea Nitrogen) 17 mg/dL (8.4-25.7); Calc. Creatinine Clearance 54 mL/min (70-130); Calcium 8.5 mg/dL (7.8-10.44); Carbon Dioxide 24 mmol/L (23-31); Chloride 112 mmol/L (98-107); Estimated GFR-MDRD 44; Glucose 140 mg/dL (80-115); Magnesium 1.4 mg/dL (1.6-2.6); Phosphorus 2.7 mg/dL (2.3-4.7); Potassium 3.2 mmol/L (3.5-5.1); Sodium 141 mmol/L (136-145)
[2018-05-23] MEDS: Ondansetron PF 4 MG/2 ML Vial IVP PRN (06:54)
[2018-05-23] MEDS ORDERED: Potassium Chloride 20 MEQ TAB PO SCH (08:00)
[2018-05-23] MEDS ORDERED: Potassium Chloride 10 MEQ TAB PO SCH (08:00)
[2018-05-23] MEDS ORDERED: Magnesium Sulfate 4 GM in Sodium Chloride 0.9% 250 ML 250 ML IVPB SCH (08:00)
[2018-05-23] MEDS: Saccharomyces boulardii 250 MG CAP PO SCH (08:15)
[2018-05-23] MEDS: Enoxaparin Sodium 30 MG/0.3 ML SYRINGE SC SCH (08:16)
[2018-05-23] MEDS: Opium Tincture 10% (1ml Charge) PO SCH ×2 (08:16→12:44)
[2018-05-23 08:26] VITALS: BP 104/59; TEMP 97.8
[2018-05-23] MEDS: Timolol 0.5% Ophth Soln 5 ml Bottle EA EYE SCH (09:27)
--- NOTE | 2018-05-23 09:47 | PDOC.PN ---
- Subjective Encounter Start Date: 05/23/18 Encounter Start Time: 07:10 Patient seen and examined. No new complaints. No overnight events - Objective Resuscitation Status - Order Detail: 05/16/18 17:43 Resuscitation Status Routine Resuscitation Status: FULL: Full Resuscitation Discussed with: Patient KEARA Reviewed: Yes Vital Signs & Weight: Vital Signs (12 hours) Temp Pulse Resp BP BP Pulse Ox 05/23/18 09:27 67 104/59 L 05/23/18 08:00 97.8 F 67 16 104/59 L 97 Weight Admit Weight 165 lb 5 oz Weight 173 lb 8 oz I&O: 05/22/18 05/23/18 05/24/18 06:59 06:59 06:59 Intake Total 2440 2650 Output Total 1000 300 Balance 1440 2350 Result Diagrams: 05/23/18 04:37 05/23/18 04:37 Additional Labs: Accuchecks 05/22/18 05/22/18 05/22/18 20:12 17:15 12:24 POC Glucose 189 H 159 H 253 H Phys Exam - Physical Examination Constitutional: NAD HEENT: PERRLA, moist MMs, sclera anicteric Neck: no JVD, supple Respiratory: no wheezing, no rales, no rhonchi Cardiovascular: RRR, no significant murmur, no rub Gastrointestinal: soft, non-tender, no distention, positive bowel sounds Musculoskeletal: no edema, pulses present Neurological: non-focal, normal sensation, moves all 4 limbs Psychiatric: normal affect, A&O x 3 Skin: no rash, normal turgor Dx/Plan (1) Acute renal failure (ARF) Status: Acute Comment: likely plugging of kidneys by uric acid, severe creatinine elevation (2) Diarrhea Code(s): R19.7 - DIARRHEA, UNSPECIFIED Status: Acute Comment: likely due to chemo effect, C. 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 Review of Systems - Review of Systems ENT: negative: Ear Pain, Ear Discharge, Nose Pain, Nose Discharge, Nose Congestion, Mouth Pain, Mouth Swelling, Throat Pain, Throat Swelling, Other Respiratory: negative: Cough, Dry, Shortness of Breath, Hemoptysis, SOB with Excertion, Pleuritic Pain, Sputum, Wheezing Cardiovascular: negative: chest pain, palpitations, orthopnea, paroxysmal nocturnal dyspnea, edema, light headedness, other Gastrointestinal: negative: Nausea, Vomiting, Abdominal Pain, Diarrhea, Constipation, Melena, Hematochezia, Other Genitourinary: negative: Dysuria, Frequency, Incontinence, Hematuria, Retention , Other Musculoskeletal: negative: Neck Pain, Shoulder Pain, Arm Pain, Back Pain, Hand Pain, Leg Pain, Foot Pain, Other - Medications/Allergies Allergies/Adverse Reactions: Allergies Allergy/AdvReac Type Severity Reaction Status Date / Time No Known Allergies Allergy Verified 03/31/18 13:45 Medications: Current Medications Acetaminophen (Tylenol) 650 mg PO Q4H PRN PRN Reason: Headache/Fever/Mild Pain (1-3) Acetaminophen (Tylenol) 650 mg HI Q4H PRN PRN Reason: Headache/Fever/Mild Pain (1-3) Hydrocodone Bitart/Acetaminophen ([place] 5/325) 1 tab PO Q4H PRN PRN Reason: Mild-Moderate Pain (1-5) Hydrocodone Bitart/Acetaminophen ([place] 5/325) 2 tab PO Q4H PRN PRN Reason: Severe Pain (7-10) Dextrose/Water (Dextrose 50%) 25 gm SLOW IVP PRN PRN PRN Reason: Hypoglycemia Diphenoxylate HCl/Atropine (Lomotil) 1 tab PO QIDPRN PRN PRN Reason: Diarrhea/Loose Stools Last Admin: 05/22/18 20:21 Dose: 1 tab Diphenoxylate HCl/Atropine (Lomotil) 2 tab PO QIDPRN PRN PRN Reason: Diarrhea/Loose Stools Last Admin: 05/20/18 20:48 Dose: 2 tab Enoxaparin Sodium (Lovenox) 30 mg SC 0900 [facility] Last Admin: 05/23/18 08:16 Dose: 30 mg Famotidine (Pepcid) 20 mg SLOW IVP QPM [facility] Last Admin: 05/22/18 20:15 Dose: 20 mg Glucagon (Glucagon) 1 mg IM PRN PRN PRN Reason: Hypoglycemia Guaifenesin/Dextromethorphan (Robitussin Dm) 15 ml PO Q4H PRN PRN Reason: Cough Dextrose/Water (D5w) 1,000 mls @ 0 mls/hr IV .Q0M PRN PRN Reason: Hypoglycemia Sodium Chloride (Normal Saline 0.9%) 1,000 mls @ 50 mls/hr IV .Q20H [facility] Last Admin: 05/22/18 17:21 Dose: 1,000 mls Magnesium Sulfate 4 gm/ Sodium (Chloride) 258 mls @ 86 mls/hr IVPB ONE [facility] Stop: 05/23/18 12:00 Last Admin: 05/23/18 09:21 Dose: 258 mls Insulin Human Lispro (Humalog) 0 units SC .MILD SLIDING SCALE PRN PRN Reason: Mild Correctional Scale Last Admin: 05/22/18 12:53 Dose: 3 unit Insulin Human Lispro (Humalog) 0 units SC .BEDTIME SLIDING SC PRN PRN Reason: Bedtime Correctional Scale Latanoprost (Xalatan 0.005% [facility] Soln) 1 drop EA EYE HS [facility] Last Admin: 05/22/18 20:16 Dose: 1 drop Loperamide HCl (Imodium) 2 mg PO PRN PRN PRN Reason: Diarrhea/Loose Stools Last Admin: 05/20/18 09:43 Dose: 2 mg Morphine Sulfate (Morphine) 4 mg SLOW IVP Q3H PRN PRN Reason: Pain Last Admin: 05/22/18 21:17 Dose: 4 mg Ondansetron HCl (Zofran Odt) 4 mg PO Q6H PRN PRN Reason: Nausea/Vomiting Ondansetron HCl (Zofran) 4 mg IVP Q6H PRN PRN Reason: Nausea/Vomiting Last Admin: 05/23/18 06:54 Dose: 4 mg Opium Tincture (Opium Tincture 10%) 0 ml PO QID [facility] Last Admin: 05/23/18 08:16 Dose: Not Given Potassium Chloride (Klor-Con 10) 40 meq PO BID[facility] Last Admin: 05/23/18 08:21 Dose: 40 meq Promethazine HCl (Phenergan) 25 mg IM/IV Q6H PRN PRN Reason: Nausea/Vomiting Saccharomyces Boulardii (Florastor) 250 mg PO BID [facility] Last Admin: 05/23/18 08:15 Dose: 250 mg Senna/Docusate Sodium (Senokot S) 2 tab PO BID PRN PRN Reason: Constipation Sodium Chloride (Flush - Normal Saline) 10 ml IVF Q12HR [facility] Last Admin: 05/23/18 08:45 Dose: Not Given Sodium Chloride (Flush - Normal Saline) 10 ml IVF PRN PRN PRN Reason: Saline Flush Last Admin: 05/20/18 03:38 Dose: 10 ml Sodium Chloride (Flush - Normal Saline) 10 ml IVF PRN PRN PRN Reason: Saline Flush Timolol [facility] 1 drop EA EYE BID [facility] Last Admin: 05/23/18 09:27 Dose: 1 drop
--- NOTE | 2018-05-23 09:48 | PRG ---
DATE OF SERVICE: 05/23/2018 SUBJECTIVE: A 62-year-old gentleman being seen for acute kidney injury. The patient denies any nausea, vomiting, or chest pain. OBJECTIVE: GENERAL: The patient is awake and alert. VITAL SIGNS: Afebrile, pulse 67, breathing 16, and blood pressure 104/59. GENERAL APPEARANCE AND MENTAL STATUS: Fair. HEAD/NECK: Normocephalic. Atraumatic. EYES: EOMI. No deformity. EARS: Clear. No ulcers. NOSE: Intact. No lesions. MOUTH: Clear. No discharge. THROAT: Clear. No exudate. LUNGS: Clear. No crackles. CARDIAC: S1, S2. No rub. ABDOMEN: Benign. Bowel sounds positive. GENITALIA/RECTUM: Glover absent. BACK/EXTREMITIES: Edema 0+. NEUROLOGICAL: Alert and motor intact. SKIN: LYMPHATICS: LABORATORY DATA: Reviewed. ASSESSMENT: 1. Stage 3 chronic kidney disease, stable. 2. Acute kidney injury, improving. 3. Hypertension, stable. 4. Hypokalemia. Recommend high potassium diet and 40 mEq of potassium. 5. Hypomagnesemia. We would recommend magnesium replacement. No indication for dialysis. I will sign off on this patient. Please reconsult as needed. Job ID: [id number]
--- NOTE | 2018-05-23 11:22 | DIS ---
DATE OF ADMISSION: 05/16/2018 DATE OF DISCHARGE: 05/23/2018 PRIMARY CARE PHYSICIAN: [facility] Call admission. DISCHARGE DISPOSITION: Home. PRIMARY DISCHARGE DIAGNOSES: Acute kidney failure, hyperuricemia, hypotension, resolved; nausea and vomiting, resolved; abnormal electrolytes, corrected; chemotherapy-induced colitis. SECONDARY DISCHARGE DIAGNOSES: Anemia of chronic disease, invasive ductal carcinoma of breast. PRIMARY PROCEDURE/OPERATION: None. RADIOLOGICAL INVESTIGATION: Chest x-ray, renal ultrasound. SIGNIFICANT LABORATORY DATA: On discharge, WBC 6.3, hemoglobin 8.6, platelet 185. Sodium 141, potassium 3.2, creatinine 1.59, phosphorus 2.7, magnesium 1.4. Blood culture negative. Stool for infection workup negative. Urine culture negative. DISCHARGE MEDICATIONS: 1. Lopid 600 mg p.o. daily. 2. Glyburide 5 mg p.o. b.i.d. 3. Xalatan eye drops at bedtime. 4. Januvia with metformin mg one tablet twice daily. 5. Timolol ophthalmic drops b.i.d. 6. [place] 1 or 2 tablets q.4 hourly p.r.n. 7. Magnesium oxide 400 mg p.o. daily. 8. Potassium chloride 20 mEq p.o. daily. 9. Florastor 250 mg p.o. b.i.d. CONTRAINDICATION: None. CODE STATUS: Full code. INPATIENT MINER OPERATOR: Nephrology group was following while in hospital. Oncology group was following while in hospital. TEST RESULT PENDING ON DISCHARGE: None. ALLERGIES: NO KNOWN DRUG ALLERGIES. DISCHARGE PLAN: Post hospital, the patient will follow up with primary care physician in 1 or 2 weeks. The patient will make appointment with Oncology and Nephrology group. HOSPITAL COURSE: A 62-year-old male with above-mentioned medical problem, who was admitted by Dr. Len Richter. Please see his H and P for further details. The patient has underlying history of invasive ductal carcinoma of male breast. He is getting chemotherapy. He was admitted for nausea, vomiting, and diarrhea. He was found with acute kidney failure. He had hyperuricemia. He was given rasburicase. The patient was hydrated with IV fluid and his renal function improved from number 7.61 to 1.59 on discharge. The patient's diarrhea was attributed to be due to chemotherapy induced. Infectious etiology ruled out. The patient had abnormal electrolytes while in hospital, which was replaced while in hospital. The patient was doing very well by the time of discharge and all consultants cleared him for discharge. He will follow up with Oncology, Nephrology after discharge. The patient is seen and examined at bedside today. Please see my progress note from today for further detail. Job ID: [id number]
[2018-05-23] MEDS: HumaLOG 300 UNITS/3 ML VIAL SC PRN (12:48)
== END 2018-05-23 15:51 | disposition home or self-care (01) | DRG 394 ==
LOC: ONC 16:52
PROVIDERS: ADMIT Internal Medicine; ATTEND Internal Medicine
DX: K52.1 Toxic gastroenteritis and colitis (principal); N17.9 Acute kidney failure, unspecified; E87.2 Acidosis; T45.1X5A Adverse effect of antineoplastic and immunosuppressive drugs, initial encounter; Y92.9 Unspecified place or not applicable; E87.6 Hypokalemia; I95.9 Hypotension, unspecified; D64.9 Anemia, unspecified; C50.921 Malignant neoplasm of unspecified site of right male breast; I12.9 Hypertensive chronic kidney disease with stage 1 through stage 4 chronic kidney disease, or unspecified chronic kidney disease; N18.3 Chronic kidney disease, stage 3 (moderate); E83.42 Hypomagnesemia; E83.39 Other disorders of phosphorus metabolism; E11.22 Type 2 diabetes mellitus with diabetic chronic kidney disease; E86.0 Dehydration
CPT/HCPCS: 36415; 36416; 71046; 76770; 80048; 80053; 81001; 82247; 82248; 82955; 83010; 83605; 83615; 83630; 83735; 84100; 84550; 85007; 85025; 85027; 85041; 85046; 85060; 86850; 86880; 86900; 86901; 87040; 87045; 87046; 87086; 87324; 87449; 87899; J1642; J1650; J2270; J2405; J2783; J2997; J3475; J3480; J7050; J7070; Q0162; S0028

== ENCOUNTER 2018-08-14 13:06 | Day surgery (SDC) | payer BC, OTHER ==
[~2018-08-14 13:06] MED LIST: Trastuzumab 450 MG in Sodium Chloride 0.9% 250 ML 250 ML IVPB SCH
[2018-08-14 13:45] VITALS: BP 119/68; TEMP 98.5
[2018-08-14] MEDS ORDERED: Sodium Chloride 0.9% 20 ML ONE (13:54)
== END 2018-08-14 15:39 | disposition home or self-care (01) ==
LOC: ONC/OP 13:06
PROVIDERS: ATTEND Internal Medicine Hematology & Oncology
DX: Z51.12 Encounter for antineoplastic immunotherapy (principal); C50.022 Malignant neoplasm of nipple and areola, left male breast; C14.8 Malignant neoplasm of overlapping sites of lip, oral cavity and pharynx; Z17.0 Estrogen receptor positive status [ER+]
CPT/HCPCS: 96413; J1642; J7050; J9355

== ENCOUNTER 2018-09-04 13:45 | Day surgery (SDC) | payer BC ==
[2018-09-04] MEDS ORDERED: Sodium Chloride 0.9% 20 ML ONE (13:49)
[2018-09-04 15:36] VITALS: BP 109/62; TEMP 98.7
== END 2018-09-04 16:02 | disposition home or self-care (01) ==
LOC: ONC/OP 13:45
PROVIDERS: ATTEND Internal Medicine Hematology & Oncology
DX: Z51.11 Encounter for antineoplastic chemotherapy (principal); C14.8 Malignant neoplasm of overlapping sites of lip, oral cavity and pharynx; C50.022 Malignant neoplasm of nipple and areola, left male breast; Z79.84 Long term (current) use of oral hypoglycemic drugs; Z79.899 Other long term (current) drug therapy
CPT/HCPCS: 96413; J1642; J7050; J9355

== ENCOUNTER 2018-09-25 12:54 | Day surgery (SDC) | payer BC ==
[~2018-09-25 12:54] MED LIST changes: +Sodium Chloride 0.9% 20 ML ONE
== END 2018-09-25 15:54 | disposition home or self-care (01) ==
LOC: ONC/OP 12:54
PROVIDERS: ATTEND Internal Medicine Hematology & Oncology
DX: Z51.12 Encounter for antineoplastic immunotherapy (principal); C14.8 Malignant neoplasm of overlapping sites of lip, oral cavity and pharynx; C50.022 Malignant neoplasm of nipple and areola, left male breast
CPT/HCPCS: 96413; J1642; J7050; J9355

== ENCOUNTER 2019-02-28 12:25 | Outpatient (CLI) | payer OTHER | END 2019-02-28 12:26 | disposition home or self-care (01) | LOC: ULT 12:25 | PROVIDERS: ATTEND Internal Medicine Hematology & Oncology | DX: Z51.11 Encounter for antineoplastic chemotherapy (principal); C50.022 Malignant neoplasm of nipple and areola, left male breast; Z79.899 Other long term (current) drug therapy; I08.1 Rheumatic disorders of both mitral and tricuspid valves | CPT/HCPCS: 93306 ==

== ENCOUNTER 2023-04-11 10:58 | Outpatient (CLI) | payer MEDICARE ==
[~2023-04-11 10:58] MED LIST changes: +Iopamidol 370 76% 100 ML VIAL ONE; -Sodium Chloride 0.9% 20 ML ONE; -Trastuzumab 450 MG in Sodium Chloride 0.9% 250 ML 250 ML IVPB SCH
== END 2023-04-11 10:59 | disposition home or self-care (01) ==
LOC: BICCT 10:58
PROVIDERS: ATTEND Specialist
DX: M79.89 Other specified soft tissue disorders (principal); J98.4 Other disorders of lung; E04.1 Nontoxic single thyroid nodule; Z90.49 Acquired absence of other specified parts of digestive tract; K76.0 Fatty (change of) liver, not elsewhere classified; Z90.11 Acquired absence of right breast and nipple
CPT/HCPCS: 71260; 82565